=== PATIENT | male | born 1960 | race Caucasian/White ===

== ENCOUNTER 2018-06-09 15:35 | Outpatient (CLI) | payer SELFPAY | END 2018-06-09 15:36 | disposition EMS.NT | LOC: EMS 15:35 | PROVIDERS: ATTEND Surgery | DX: Z04.1 Encounter for examination and observation following transport accident (principal) ==

== ENCOUNTER 2019-05-01 15:41 | Outpatient (CLI) | payer OTHER ==
--- NOTE | 2019-05-03 07:21 | XRAY Report ---
Reason: ARTHRITIS, PAIN IN RIGHT SHOULDER Procedure Date: 05/01/2019 Accession Number: [id number] / [id number] Procedure: XRN - Shoulder 3 View RT CPT Code: FULL RESULT: EXAM: RIGHT SHOULDER RADIOGRAPHY EXAM DATE: 05/01/2019 04:01 PM. CLINICAL HISTORY: ARTHRITIS, PAIN IN RIGHT SHOULDER. COMPARISON: None. TECHNIQUE: 3 views. FINDINGS: Bones: No acute fracture. Irregularity of the right humerus head may be posttraumatic or degenerative. Joints: Mild acromioclavicular joint narrowing, osteophytosis, and subchondral sclerosis. Marked glenohumeral joint narrowing, osteophytosis, and subchondral sclerosis. Normal alignment of the shoulder joint. Soft tissues: The visualized hemithorax is unremarkable. Large loose bodies are present in the right shoulder joint. IMPRESSION: 1. No fracture. 2. Marked right glenohumeral and mild right acromioclavicular joint arthritis. Large loose bodies noted in the right shoulder joint. RADIA
== END 2019-05-01 15:42 | disposition home or self-care (01) ==
LOC: DI.N 15:41
PROVIDERS: ATTEND Family Medicine
DX: M19.011 Primary osteoarthritis, right shoulder (principal); M24.011 Loose body in right shoulder

== ENCOUNTER 2023-05-08 07:43 | Emergency (ER) | payer MEDICAID, OTHER ==
[2023-05-08 08:15] LABS: BASOPHILS # (AUTO) 0.1 10^3/uL (0.0-0.1); BASOPHILS % (AUTO) 1.4 %; EOSINOPHILS # (AUTO) 0.2 10^3/uL (0.0-0.7); EOSINOPHILS % (AUTO) 2.8 %; HCT - HEMATOCRIT 40.7 % (42.0-52.0); HGB - HEMOGLOBIN 14.2 g/dL (14.0-18.0); LYMPHOCYTES # (AUTO) 1.3 10^3/uL (1.5-3.5); LYMPHOCYTES % (AUTO) 16.8 %; MEAN CORPUSCULAR HEMOGLOBIN 40.3 pg (27.0-31.0); MEAN CORPUSCULAR HGB CONC 34.9 g/dL (32.0-36.0); MEAN CORPUSCULAR VOLUME 115.6 fL (80.0-94.0); MONOCYTES # (AUTO) 0.8 10^3/uL (0.0-1.0); MONOCYTES % (AUTO) 9.6 %; NEUTROPHILS # (AUTO) 5.5 10^3/uL (1.5-6.6); NEUTROPHILS % (AUTO) 68.5 %; PLT - PLATELET COUNT 155 10^3/uL (130-450); RED BLOOD COUNT 3.52 10^6/uL (4.70-6.10); RED CELL DISTRIBUTION WIDTH 13.2 % (12.0-15.0)
[2023-05-08 08:28] LABS: ALBUMIN/GLOBULIN RATIO 0.7 (1.0-2.2); BILIRUBIN,TOTAL 5.1 mg/dL (0.2-1.0); CREATININE 0.6 mg/dL (0.6-1.3); TOTAL PROTEIN 7.5 g/dL (6.4-8.9)
[2023-05-08 09:03] LABS: GLUCOSE, URINE (UA) NEGATIVE (NEGATIVE); KETONES,URINE (UA) NEGATIVE (NEGATIVE); LEUKOCYTE ESTERASE, URINE NEGATIVE (NEGATIVE); NITRITE,URINE NEGATIVE (NEGATIVE); OCCULT BLOOD,URINE NEGATIVE (NEGATIVE); PROTEIN,URINE NEGATIVE (NEGATIVE); UROBILINOGEN,URINE 0.2 (NORMAL) E.U./dL (NORMAL)
[2023-05-08 09:09] LABS: BILIRUBIN,URINE NEGATIVE (NEGATIVE); CLARITY,URINE CLEAR (CLEAR); ICTOTEST,URINE NEGATIVE
--- NOTE | 2023-05-08 11:24 | ED Physician Documentation ---
PD HPI MALE - Stated complaint Stated Complaint: - Chief complaint Chief Complaint: Abd Pain - History obtained from History obtained from: Patient - Additional information Additional information: The pt comes to the ED with CC of R groin pain and swelling x 1 week. He was doing some heavier moving/lifting, and he is concerned that he has developed a hernia. No h/o inguinal hernia. No redness or fevers. No pain/burning with urination. No back pain or blood in urine. PD PAST MEDICAL HISTORY - Past Medical History Past Medical History: No - Past Surgical History Past Surgical History: No - Present Medications Home Medications: Ambulatory Orders Medication Instructions Recorded Confirmed Docusate Sodium 250Mg Capsule 250 mg PO DAILY #10 cap 05/08/23 [Colace 250Mg Capsule] HYDROcod/ACETAM 5/325 [Iola 5/325] 1 - 2 tablet PO Q6H PRN #14 tablet 05/08/23 - Allergies Allergies/Adverse Reactions: Allergies Allergy/AdvReac Type Severity Reaction Status Date / Time No Known Drug Allergies Allergy Verified 05/08/23 07:55 - Social History Does the pt smoke?: No Smoking Status: Never smoker PD ED PE NORMAL - Vitals Vital signs reviewed: Yes - General General: Alert and oriented X 3, No acute distress - HEENT HEENT: Atraumatic, PERRL, EOMI, Moist mucous membranes - Neck Neck: Supple, no meningeal sign - Cardiac Cardiac: RRR, No murmur, Strong equal pulses - Respiratory Respiratory: No respiratory distress, Clear bilaterally - Abdomen Abdomen: Soft, Non tender, Non distended - Male Male : Other (TTP R inguinal area. Mild ST mass over same area, reducible. Mild tenderness R testicle without abnormal lie or enlargement. No scrotal skin changes. Penis normal.) - Derm Derm: Warm and dry - Extremities Extremities: No deformity - Neuro Neuro: Alert and oriented X 3 - Psych Psych: Normal mood, Normal affect Results - Labs Labs: Laboratory Tests 05/08/23 05/08/23 05/08/23 08:12 08:12 08:55 WBC 8.0 RBC 3.52 L Hgb 14.2 Hct 40.7 L MCV 115.6 H MCH 40.3 H MCHC 34.9 RDW 13.2 Plt Count 155 MPV 10.0 Neut # (Auto) 5.5 Lymph # (Auto) 1.3 L Will # (Auto) 0.8 Eos # (Auto) 0.2 Baso # (Auto) 0.1 Absolute Nucleated RBC 0.00 Nucleated RBC % 0.0 Sodium 135 Potassium 4.0 Chloride 99 L Carbon Dioxide 29 Anion Gap 7.0 BUN 7 Creatinine 0.6 Estimated GFR (MDRD) 137 Glucose 139 H Calcium 9.0 Total Bilirubin 5.1 H AST 154 H ALT 71 H Alkaline Phosphatase 182 H Total Protein 7.5 Albumin 3.0 L Globulin 4.5 H Albumin/Globulin Ratio 0.7 L Lipase 79 Urine Color YELLOW Urine Clarity CLEAR Urine pH 6.0 Ur Specific [place] >=1.030 H Urine Protein NEGATIVE Urine Glucose (UA) NEGATIVE Urine Ketones NEGATIVE Urine Occult Blood NEGATIVE Urine Nitrite NEGATIVE Urine Bilirubin NEGATIVE Urine Urobilinogen 0.2 (NORMAL) Ur Leukocyte Esterase NEGATIVE Ur Microscopic Review NOT INDICATED Urine Culture Comments NOT INDICATED - Rads (name of study) Testicular/scrotal US Relevant Findings:: Final report received, See rad report PD Medical Decision Making - ED course Complexity details: reviewed results, re-evaluated patient, considered differential, d/w patient ED course: The pt was worked up with US of R testicle/scrotum, and preliminary report found a fat-containing inguinal hernia with no evidence of epididymitis or torsion. Final report added R hydrocele. Exam does not indicate incarceration. I d/w pt the need to avoid straining, and to follow up with surgery if he would like to discuss options for management/repair. I have prescribed pain management and a stool softener. We have discussed the usual indications for return. Departure - Departure Disposition: 01 Home, Self Care Clinical Impression: Hernia Condition: Stable Instructions: ED Hernia Inguinal Follow-Up: Moses De La Rosa MD [Provider Admit Priv/Credential] - Rishabh Laboy MD [Provider Admit Priv/Credential] - Fannie Hobson MD [Provider Admit Priv/Credential] - Prescriptions: Docusate Sodium 250Mg Capsule [Colace 250Mg Capsule] 250 mg PO DAILY #10 cap HYDROcod/ACETAM 5/325 [Iola 5/325] 1 - 2 tablet PO Q6H PRN #14 tablet PRN Reason: Pain Comments: Your ultrasound today showed a fat-containing hernia in your groin region, that is penetrating down into your scrotum. There is no evidence of any problem with your testicle itself. Additionally, there is no evidence of infection of your scrotum. Please follow-up with surgery to discuss further intervention for your hernia if desired. Some pain medication has been prescribed, but it is very important that you take the stool softener along with the pain meds to avoid developing constipation and placing further strain on the herniated area. The prescription for both Has been electronically transmitted to the [facility] pharmacy in [place]. Forms: PCP List Discharge Date/Time: 05/08/23 11:35
--- NOTE | 2023-05-08 11:33 | Ultrasound Report ---
PROCEDURE: Testicle w/Doppler INDICATIONS: Right testicular pain/swelling TECHNIQUE: Real-time scanning was performed of the scrotum and testicles, with image documentation. Color and p ulse Doppler interrogation was performed of both testicles. COMPARISON: None. FINDINGS: Right: Testicle is normal in size at 4.6 x 3.0 x 2.7 cm, and homogenous in echotexture. Epididymis is suboptimally visualized. The epididymal body and tail is not well seen. Moderate hydrocele with in ternal echo consistent with debris. No varicoceles. Overlying scrotal skin is normal in thickness. Left: Testicle is normal in size at 3.9 x 3.1 x 2.7 cm, and homogeneous in echotexture. Epididymis is normal in overall size and morphology. Small hydrocele. No varicoceles. Overlying scrotal skin i s normal in thickness. Doppler: Color and pulse Doppler demonstrate normal and symmetric arterial flow in both testicles. There is a fat-containing right inguinal hernia with the hernia neck measuring 1 cm. IMPRESSION: 1. Normal testicles bilaterally. No testicular mass or findings to suggest testicular torsion. 2. Right epididymis is suboptimally visualized. Left epididymis is normal. No findings to suggest epi didymitis. 3. There is a moderate right hydrocele with debris. A differential diagnosis is hematocele or pyocele . 4. Small left hydrocele. 5. A fat-containing right inguinal hernia. Reviewed by: Owen Pillai MD on 05/08/2023 11:31 AM PDT Approved by: Owen Pillai MD on 05/08/2023 11:31 AM PDT Station ID: [id number]
[2023-05-08 11:41] VITALS: BP 155/113; O2SAT 95
== END 2023-05-08 11:35 | disposition home or self-care (01) ==
LOC: ED 07:43
DX: K40.90 Unilateral inguinal hernia, without obstruction or gangrene, not specified as recurrent (principal)
CPT/HCPCS: 36415; 80053; 81001; 81003; 83690; 85025; 87086; 93975; 99283; 99284

== ENCOUNTER 2023-06-12 10:33 | Outpatient (CLI) | payer MEDICAID ==
[2023-06-12 15:39] LABS: ALBUMIN 2.5 g/dL (3.2-5.5); ALBUMIN/GLOBULIN RATIO 0.5 (1.0-2.2); BILIRUBIN,TOTAL 7.6 mg/dL (0.2-1.0); CALCIUM 8.9 mg/dL (8.5-10.3); CREATININE 0.9 mg/dL (0.6-1.3); POTASSIUM 4.4 mmol/L (3.5-4.5); TOTAL PROTEIN 7.7 g/dL (6.4-8.9)
[2023-06-12 15:42] LABS: PT - PROTHROMBIN TIME 20.9 secs (9.9-12.6)
== END 2023-06-12 10:34 | disposition home or self-care (01) ==
LOC: LAB.S 10:33
PROVIDERS: ATTEND Physician Assistant Medical
DX: K70.31 Alcoholic cirrhosis of liver with ascites (principal)
CPT/HCPCS: 36415; 80053; 85610

== ENCOUNTER 2023-06-19 08:51 | Outpatient (CLI) | payer MEDICAID ==
[2023-06-19 09:23] LABS: BASOPHILS # (AUTO) 0.1 10^3/uL (0.0-0.1); BASOPHILS % (AUTO) 0.8 %; EOSINOPHILS # (AUTO) 0.1 10^3/uL (0.0-0.7); EOSINOPHILS % (AUTO) 0.8 %; HCT - HEMATOCRIT 40.2 % (42.0-52.0); HGB - HEMOGLOBIN 13.8 g/dL (14.0-18.0); LYMPHOCYTES # (AUTO) 1.1 10^3/uL (1.5-3.5); LYMPHOCYTES % (AUTO) 11.4 %; MEAN CORPUSCULAR HEMOGLOBIN 39.5 pg (27.0-31.0); MEAN CORPUSCULAR HGB CONC 34.3 g/dL (32.0-36.0); MEAN CORPUSCULAR VOLUME 115.2 fL (80.0-94.0); MEAN PLATELET VOLUME 9.5 fL (7.4-11.4); MONOCYTES # (AUTO) 0.8 10^3/uL (0.0-1.0); MONOCYTES % (AUTO) 9.1 %; NEUTROPHILS # (AUTO) 7.2 10^3/uL (1.5-6.6); NEUTROPHILS % (AUTO) 77.5 %; PLT - PLATELET COUNT 197 10^3/uL (130-450); RED BLOOD COUNT 3.49 10^6/uL (4.70-6.10); RED CELL DISTRIBUTION WIDTH 12.8 % (12.0-15.0); WHITE BLOOD COUNT 9.3 x10^3/uL (4.8-10.8)
[2023-06-19 09:27] LABS: SLIDE REVIEW? Indicated
[2023-06-19 09:42] LABS: INR 2.1 (0.8-1.2); PT - PROTHROMBIN TIME 22.1 secs (9.9-12.6)
[2023-06-19 09:44] LABS: ALBUMIN 2.6 g/dL (3.2-5.5); ALBUMIN/GLOBULIN RATIO 0.5 (1.0-2.2); BILIRUBIN,TOTAL 5.5 mg/dL (0.2-1.0); CALCIUM 8.6 mg/dL (8.5-10.3); CREATININE 0.9 mg/dL (0.6-1.3); MAGNESIUM 1.6 mg/dL (1.7-2.3); POTASSIUM 4.2 mmol/L (3.5-4.5); TOTAL PROTEIN 7.5 g/dL (6.4-8.9)
[2023-06-19 10:02] LABS: PLATELET ESTIMATE, MANUAL NORMAL (130-450,000) (NORMAL); PLATELET MORPHOLOGY NORMAL APPEARANCE (NORMAL)
[2023-06-19 10:03] LABS: RBC MORPHOLOGY (MULTIPLE) 1+ MACROCYTOSIS (NORMAL); WBC MORPHOLOGY (MULTIPLE) 2+ SMUDGE CELLS (NORMAL)
--- NOTE | 2023-06-19 15:54 | Ultrasound Report ---
PROCEDURE: Abdominal Paracentesis INDICATIONS: ASCITES TECHNIQUE: The indications, alternatives, benefits, risks, and complications of the procedure were explained to the patient. Written informed consent was obtained and placed in the chart. The abdomen and pelvis were examined sonographically, and an appropriate site was chosen for paracentesis. The skin was pre pared and draped in the usual sterile fashion, and 1% lidocaine was infiltrated from the skin down th rough the peritoneal surface. A 19-gauge catheter-covered needle was then introduced into the perito bruno space, the catheter was advanced and the needle was withdrawn, and thereafter peritoneal fluid w as withdrawn. The catheter was then removed and a dressing was applied. The fluid was discarded if the clinician did not order diagnostic testing of the fluid. COMPARISON: None FINDINGS: Access site: Right lower quadrant Needle: One-Step centesis catheter with introducer needle. Fluid volume and description: 5 L yellow Fluid sent for diagnostic testing: Yes Medications: 1% lidocaine for local anaesthesia. Complications: None. IMPRESSION: Successful ultrasound-guided paracentesis. Reviewed by: Addie Yoon MD on 06/19/2023 3:53 PM PST Approved by: Addie Yoon MD on 06/19/2023 3:53 PM PST Station ID: [id number]
== END 2023-06-19 08:52 | disposition home or self-care (01) ==
LOC: DI 08:51
PROVIDERS: ATTEND Physician Assistant Medical
DX: K70.31 Alcoholic cirrhosis of liver with ascites (principal)
CPT/HCPCS: 36415; 49083; 80053; 83735; 85025; 85610

== ENCOUNTER 2023-06-25 08:56 | Outpatient (CLI) | payer MEDICAID ==
[2023-06-25] MEDS ORDERED: iohexoL-300 100 ML VIAL IVP ONE (10:09)
--- NOTE | 2023-06-25 13:32 | CT Report ---
PROCEDURE: ABDOMEN W/WO INDICATIONS: KIDNEY CA CONTRAST: 140ml omni 300 TECHNIQUE: 3 phase scanning was performed. After the administration of intravenous contrast, 5 mm thick section s acquired from the diaphragm to the symphysis. 5 mm coronal and sagittal reformats were acquired. For radiation dose reduction, the following was used: automated exposure control, adjustment of mA a nd/or kV according to patient size. COMPARISON: None. FINDINGS: Image quality: Excellent. Liver: Cirrhotic changes of the liver including nodular contours and increased density. Femoral vein is patent. No liver lesions identified. OTHER: Lung bases and heart: Small left effusion. Gallbladder and biliary tree: Cholelithiasis without wall thickening. No biliary dilation. Spleen: No splenomegaly. Pancreas: No pancreatic ductal dilation. Adrenals: No adrenal nodule. Kidneys and ureters: Continued for pole of the left kidney there is a soft tissue density mass measur ing 5.8 x 4.3 x 3.4 cm with a mildly heterogeneous appearance with questionable low-level enhancement . Bowel and peritoneum: No bowel distention. Moderate ascites Lymph nodes: No central or retroperitoneal adenopathy. Vessels: No infrarenal aortic aneurysm. Bones: No aggressive osseous abnormality. Severe spondylitic changes at L2-L3 with grade 2 retrolisth esis. Other: No significant ventral hernia. IMPRESSION: 1.Exophytic mass of the lower pole of the left kidney measuring 5.8 cm with questionable enhancement likely reflects a solid mass concerning for malignancy however hyperdense cyst is not excluded. Consi des ultrasound versus MRI to distinguish solid from hyperdense cystic lesion. 2.Sequela of cirrhosis without mass identified. 3.Cholelithiasis without evidence of acute cholecystitis. Reviewed by: Jerad Wells MD on 06/25/2023 12:31 PM [place] Approved by: Jerad Wells MD on 06/25/2023 12:31 PM [facility] Station ID: [id number]
== END 2023-06-25 08:57 | disposition home or self-care (01) ==
LOC: DI 08:56
PROVIDERS: ATTEND Urology
DX: D41.02 Neoplasm of uncertain behavior of left kidney (principal); K80.20 Calculus of gallbladder without cholecystitis without obstruction
CPT/HCPCS: 74170; Q9967

== ENCOUNTER 2023-07-05 10:20 | Outpatient (CLI) | payer MEDICAID ==
--- NOTE | 2023-07-11 18:15 | Ultrasound Report ---
PROCEDURE: Abdominal Paracentesis INDICATIONS: ASCITES TECHNIQUE: The indications, alternatives, benefits, risks, and complications of the procedure were explained to the patient. Written informed consent was obtained and placed in the chart. The abdomen and pelvis were examined sonographically, and an appropriate site was chosen for paracentesis. The skin was pre pared and draped in the usual sterile fashion, and 1% lidocaine was infiltrated from the skin down th rough the peritoneal surface. A 19-gauge catheter-covered needle was then introduced into the perito bruno space, the catheter was advanced and the needle was withdrawn, and thereafter peritoneal fluid w as withdrawn. The catheter was then removed and a dressing was applied. The fluid was discarded if the clinician did not order diagnostic testing of the fluid. COMPARISON: 06/19/2013 FINDINGS: Access site: Right lower quadrant Needle: One-Step centesis catheter with introducer needle. Fluid volume and description: 5 L ascites Fluid sent for diagnostic testing: No Medications: 1% lidocaine for local anaesthesia. Complications: None. IMPRESSION: 1. Successful ultrasound-guided paracentesis. Reviewed by: Carissa Metz MD on 07/11/2023 6:14 PM PST Approved by: Carissa Metz MD on 07/11/2023 6:14 PM PST Station ID: [id number]
== END 2023-07-05 10:21 | disposition home or self-care (01) ==
LOC: DI 10:20
PROVIDERS: ATTEND Physician Assistant Medical
DX: K70.31 Alcoholic cirrhosis of liver with ascites (principal)
CPT/HCPCS: 49083

== ENCOUNTER 2023-07-10 07:36 | Outpatient (CLI) | payer MEDICAID ==
--- NOTE | 2023-07-10 15:20 | Ultrasound Report ---
PROCEDURE: Retroperitoneal INDICATIONS: KIDNEY CANCER TECHNIQUE: Real-time scanning was performed of the retroperitoneal organs, with image documentation. COMPARISON: CT abdomen on June 25, 2023. FINDINGS: Kidneys: Kidneys are normal in size. Right kidney measures 10.9 cm long; left kidney measures 12.6 cm long. Right renal cortical thickness is 1 cm; left renal cortical thickness is 1 cm. Multiple lesions in the left kidney. For example: -Left interpolar questionable hypoechoic solid mass measuring 3.2 x 2.5 x 2.3 cm. -Anechoic cyst in the lower pole measuring 3.9 x 4.2 x 4.5 cm with adjacent hypoechoic lesion measuri ng 3 x 3.9 x 3.4 cm. -Anechoic simple cyst in the upper pole measuring 2.2 x 2.1 x 2.3 cm. Right kidney demonstrates no solid or cystic masses. Bladder: Nondistended, limiting evaluation. On pre-void images, bilateral ureteral jets are noted wit h color Doppler interrogation. (Of note, ureteral jets may not be detectable in up to 25% of cases d ue to insufficient differences in specific gravity between ureteral and bladder urine). Miscellaneous: No free abdominal fluid. IMPRESSION: 1. Multiple lesions in the left kidney with two questionable solid masses in the interpolar region me asuring 3.2 x 2.5 x 2.3 cm and lower pole adjacent to a simple cyst measuring 3 x 3.9 x 3.4 cm. - Recommend an MRI (renal mass protocol) for further evaluation which is preferred. Alternatively, a CT (renal mass protocol) can be performed. 2. Right-sided renal masses. 3. No hydronephrosis bilaterally. Reviewed by: Madelaine Mann MD on 07/10/2023 3:19 PM PST Approved by: Madelaine Mann MD on 07/10/2023 3:19 PM PST Station ID: [id number]
== END 2023-07-10 07:37 | disposition home or self-care (01) ==
LOC: DI 07:36
PROVIDERS: ATTEND Urology
DX: D41.02 Neoplasm of uncertain behavior of left kidney (principal); N28.89 Other specified disorders of kidney and ureter

== ENCOUNTER 2023-07-12 11:01 | Outpatient (CLI) | payer MEDICAID ==
[2023-07-12 11:16] LABS: BASOPHILS # (AUTO) 0.1 10^3/uL (0.0-0.1); EOSINOPHILS # (AUTO) 0.1 10^3/uL (0.0-0.7); HCT - HEMATOCRIT 45.7 % (42.0-52.0); HGB - HEMOGLOBIN 15.8 g/dL (14.0-18.0); LYMPHOCYTES # (AUTO) 1.2 10^3/uL (1.5-3.5); LYMPHOCYTES % (AUTO) 16.5 %; MEAN CORPUSCULAR HEMOGLOBIN 37.9 pg (27.0-31.0); MEAN CORPUSCULAR HGB CONC 34.6 g/dL (32.0-36.0); MEAN CORPUSCULAR VOLUME 109.6 fL (80.0-94.0); MEAN PLATELET VOLUME 9.5 fL (7.4-11.4); MONOCYTES # (AUTO) 0.6 10^3/uL (0.0-1.0); MONOCYTES % (AUTO) 8.6 %; NEUTROPHILS # (AUTO) 5.3 10^3/uL (1.5-6.6); NEUTROPHILS % (AUTO) 72.6 %; PLT - PLATELET COUNT 196 10^3/uL (130-450); RED BLOOD COUNT 4.17 10^6/uL (4.70-6.10); RED CELL DISTRIBUTION WIDTH 12.2 % (12.0-15.0); WHITE BLOOD COUNT 7.3 x10^3/uL (4.8-10.8)
[2023-07-12 11:28] LABS: PT - PROTHROMBIN TIME 21.2 secs (9.9-12.6)
[2023-07-12 11:31] LABS: ALBUMIN/GLOBULIN RATIO 0.5 (1.0-2.2); BILIRUBIN,TOTAL 5.3 mg/dL (0.2-1.0); CALCIUM 9.6 mg/dL (8.5-10.3); POTASSIUM 4.2 mmol/L (3.5-4.5)
== END 2023-07-12 11:02 | disposition home or self-care (01) ==
LOC: LAB 11:01
PROVIDERS: ATTEND Physician Assistant Medical
DX: K70.31 Alcoholic cirrhosis of liver with ascites (principal)
CPT/HCPCS: 36415; 80053; 85025; 85610

== ENCOUNTER 2023-07-18 07:51 | Outpatient (CLI) | payer MEDICAID ==
--- NOTE | 2023-07-18 13:17 | Ultrasound Report ---
PROCEDURE: Abdominal Paracentesis INDICATIONS: ASCITES TECHNIQUE: The indications, alternatives, benefits, risks, and complications of the procedure were explained to the patient. Written informed consent was obtained and placed in the chart. The abdomen and pelvis were examined sonographically, and an appropriate site was chosen for paracentesis. The skin was pre pared and draped in the usual sterile fashion, and 1% lidocaine was infiltrated from the skin down th rough the peritoneal surface. A 19-gauge catheter-covered needle was then introduced into the perito bruno space, the catheter was advanced and the needle was withdrawn, and thereafter peritoneal fluid w as withdrawn. The catheter was then removed and a dressing was applied. The fluid was discarded if the clinician did not order diagnostic testing of the fluid. COMPARISON: 07/05/2023 FINDINGS: Access site: Right lower quadrant Needle: One-Step centesis catheter with introducer needle. Fluid volume and description: Clear yellow 4 L Fluid sent for diagnostic testing: No Medications: 1% lidocaine for local anaesthesia. Complications: None. IMPRESSION: Successful ultrasound-guided paracentesis. Reviewed by: Shilo Vaughan MD on 07/18/2023 1:15 PM PST Approved by: Shilo Vaughan MD on 07/18/2023 1:15 PM PST Station ID: [id number]
== END 2023-07-18 07:52 | disposition home or self-care (01) ==
LOC: DI 07:51
PROVIDERS: ATTEND Physician Assistant Medical
DX: K70.31 Alcoholic cirrhosis of liver with ascites (principal)
CPT/HCPCS: 49083

== ENCOUNTER 2023-07-27 08:48 | Outpatient (CLI) | payer MEDICAID ==
--- NOTE | 2023-07-27 11:39 | Ultrasound Report ---
PROCEDURE: Abdomen Limited INDICATIONS: Evaluate for ASCITES TECHNIQUE: Real-time focused scanning was performed of the abdomen, with image documentation. COMPARISONS: None. FINDINGS: There is mild ascites in the right side of the abdomen. It is felt to be too little to perform parace ntesis. The liver is incidentally imaged, and is noted to be a nodular on its surface and is small and shrunk en, consistent with cirrhosis. IMPRESSION: 1. Insufficient ascites for paracentesis. 2. Cirrhosis. Reviewed by: Lester Hale MD on 07/27/2023 11:37 AM PST Approved by: Lester Hale MD on 07/27/2023 11:37 AM PST Station ID: [id number]
== END 2023-07-27 08:49 | disposition home or self-care (01) ==
LOC: DI 08:48
PROVIDERS: ATTEND Physician Assistant Medical
DX: K70.31 Alcoholic cirrhosis of liver with ascites (principal)

== ENCOUNTER 2023-07-29 09:29 | Outpatient (CLI) | payer MEDICAID ==
[~2023-07-29 09:29] MED LIST: GADOTERATE MEGLUMINE 5 MMOL/10 ML VIAL ONE
[2023-07-29] MEDS ORDERED: GADOTERATE MEGLUMINE 5 MMOL/10 ML VIAL IVP ONE (11:03)
--- NOTE | 2023-08-01 10:15 | MRI Report ---
PROCEDURE: ABDOMEN W/WO INDICATIONS: KIDNEY NEOPLASM CONTRAST: CLARISCAN 20.4 ML TECHNIQUE: Coronal ultra fast SE, axial 2D spoiled GE in- and [id number]; axial breath-hold T2 fast SE. Dynam ic axial ultra fast GE during the administration of contrast; post-contrast coronal ultra fast GE or 2D spoiled GE with fat saturation from the hepatic dome to the iliac crests. Optional diffusion weig hted imaging and ADC may be performed. COMPARISON: 06/25/2023 CT FINDINGS: Image quality: Diagnostic, but mild motion artifact is present. Lower chest: There is a small right pleural effusion partially seen. Underlying lung opacities are pr obably present as well. There may be a trace left pleural effusion. Liver: Cirrhotic contour. No suspicious hypervascular liver lesion. Gallbladder and biliary system: Cholelithiasis. Nonspecific pericholecystic fat stranding. No signifi cant distention. Overall biliary system appears nondilated Pancreas: Unremarkable. No pathologic ductal dilation Spleen: Borderline enlarged at 14 cm Adrenals: No discrete nodule. Mild bilateral thickening Kidneys: There are cysts bilaterally. The left lower pole lesion in question represents a cyst with m ultiple thin septations without nodular enhancement on post gadolinium images. Vessels and lymph nodes: Portal venous varices. Upper abdominal mildly enlarged lymph nodes, probably reactive in the setting of chronic liver disease Bowel and peritoneum: Mild ascites, likely with internal debris. No bowel obstruction. Body wall: Small fat-containing umbilical hernia Bones: There are degenerative changes. Suspected vertebral body endplate deformities, better assessed on prior CT, and likely nonacute IMPRESSION: The left lower pole renal lesion represents a complex cyst with numerous thin septations. No nodular enhancement. Cirrhosis and sequelae of portal hypertension. Small ascites. In the setting of cirrhosis, consider continued HCC screening. The left lower pole renal complex cyst can be followed simultaneously. Other findings as above. Reviewed by: Shilo Vaughan MD on 08/01/2023 10:14 AM PST Approved by: Shilo Vaughan MD on 08/01/2023 10:14 AM PST Station ID: [id number]
== END 2023-07-29 09:30 | disposition home or self-care (01) ==
LOC: DI 09:29
PROVIDERS: ATTEND Urology
DX: N28.1 Cyst of kidney, acquired (principal); K74.60 Unspecified cirrhosis of liver; R18.8 Other ascites
CPT/HCPCS: 74183; A9575

== ENCOUNTER 2023-08-11 10:49 | Outpatient (CLI) | payer MEDICAID ==
[2023-08-11 11:06] LABS: BASOPHILS # (AUTO) 0.1 10^3/uL (0.0-0.1); EOSINOPHILS # (AUTO) 0.8 10^3/uL (0.0-0.7); EOSINOPHILS % (AUTO) 8.5 %; HCT - HEMATOCRIT 42.7 % (42.0-52.0); HGB - HEMOGLOBIN 15.1 g/dL (14.0-18.0); LYMPHOCYTES # (AUTO) 1.6 10^3/uL (1.5-3.5); LYMPHOCYTES % (AUTO) 17.1 %; MEAN CORPUSCULAR HEMOGLOBIN 38.3 pg (27.0-31.0); MEAN CORPUSCULAR HGB CONC 35.4 g/dL (32.0-36.0); MEAN CORPUSCULAR VOLUME 108.4 fL (80.0-94.0); MEAN PLATELET VOLUME 9.6 fL (7.4-11.4); MONOCYTES # (AUTO) 0.9 10^3/uL (0.0-1.0); MONOCYTES % (AUTO) 9.7 %; NEUTROPHILS # (AUTO) 5.7 10^3/uL (1.5-6.6); NEUTROPHILS % (AUTO) 62.8 %; PLT - PLATELET COUNT 147 10^3/uL (130-450); RED BLOOD COUNT 3.94 10^6/uL (4.70-6.10); RED CELL DISTRIBUTION WIDTH 13.8 % (12.0-15.0); WHITE BLOOD COUNT 9.1 x10^3/uL (4.8-10.8)
[2023-08-11 11:10] LABS: INR 1.7 (0.8-1.2); PT - PROTHROMBIN TIME 17.9 secs (9.9-12.6)
[2023-08-11 11:36] LABS: ALBUMIN 3.3 g/dL (3.2-5.5); ALBUMIN/GLOBULIN RATIO 0.6 (1.0-2.2); ALKALINE PHOSPHATASE 110 IU/L (42-121); ALT ALANINE AMINOTRANSFERASE 38 IU/L (10-60); AST ASPARTATE AMINOTRANSFERASE 43 IU/L (10-42); BILIRUBIN,TOTAL 3.9 mg/dL (0.2-1.0); BUN - BLOOD UREA NITROGEN 17 mg/dL (6-20); CALCIUM 9.4 mg/dL (8.5-10.3); CARBON DIOXIDE - CO2 30 mmol/L (21-32); CHLORIDE 95 mmol/L (101-111); CHOL/HDL RATIO 2.8 (<5.0); CHOLESTEROL 115 mg/dL; CREATININE 0.9 mg/dL (0.6-1.3); GFR - MDRD 86 (>89); GLUCOSE 133 mg/dL (74-104); HDL CHOLESTEROL 41 mg/dL; LDL CHOLESTEROL,CALCULATED 62 mg/dL; LDL/HDL RATIO 1.5 (<3.6); POTASSIUM 4.2 mmol/L (3.5-4.5); SODIUM 130 mmol/L (135-145); TOTAL PROTEIN 8.5 g/dL (6.4-8.9); TRIGLYCERIDES 62 mg/dL (48-352); VLDL CHOLESTEROL 12 mg/dL
[2023-08-11 11:50] LABS: ESTIMATED AVERAGE GLUCOSE 82 mg/dL (70-100); HEMOGLOBIN A1c% 4.5 % (4.27-6.07)
[2023-08-11 12:33] LABS: THYROID STIMULATING HORMONE 1.98 uIU/mL (0.34-5.60)
== END 2023-08-11 10:50 | disposition home or self-care (01) ==
LOC: LAB 10:49
PROVIDERS: ATTEND Physician Assistant Medical
DX: K70.31 Alcoholic cirrhosis of liver with ascites (principal); Z13.9 Encounter for screening, unspecified; R73.9 Hyperglycemia, unspecified; F41.9 Anxiety disorder, unspecified; F32.A Depression, unspecified
CPT/HCPCS: 36415; 80050; 80061; 83036; 83721; 85610

== ENCOUNTER 2023-08-14 08:13 | Outpatient (CLI) | payer MEDICAID ==
--- NOTE | 2023-08-14 14:27 | Ultrasound Report ---
PROCEDURE: Abdomen Limited INDICATIONS: ASCITES TECHNIQUE: Real-time focused scanning was performed of the abdomen, with image documentation. COMPARISONS: MRI 07/26/2023 FINDINGS: No significant ascites is seen in the abdomen and pelvis. Paracentesis was not performed. IMPRESSION: No significant ascites. Reviewed by: Timi Robles MD on 08/14/2023 2:26 PM PST Approved by: Timi Robles MD on 08/14/2023 2:26 PM PST Station ID: [id number]
== END 2023-08-14 08:14 | disposition home or self-care (01) ==
LOC: DI 08:13
PROVIDERS: ATTEND Physician Assistant Medical
DX: K70.31 Alcoholic cirrhosis of liver with ascites (principal)

== ENCOUNTER 2023-08-21 11:11 | Outpatient (CLI) | payer MEDICAID | END 2023-08-21 11:12 | disposition home or self-care (01) | LOC: RT 11:11 | PROVIDERS: ATTEND Surgery | DX: I48.20 Chronic atrial fibrillation, unspecified (principal) | CPT/HCPCS: 93005 ==

== ENCOUNTER 2023-09-04 13:52 | Outpatient (CLI) | payer MEDICAID ==
[2023-09-04 14:42] LABS: BASOPHILS # (AUTO) 0.1 10^3/uL (0.0-0.1); BASOPHILS % (AUTO) 1.2 %; EOSINOPHILS # (AUTO) 0.5 10^3/uL (0.0-0.7); EOSINOPHILS % (AUTO) 5.6 %; HCT - HEMATOCRIT 41.2 % (42.0-52.0); HGB - HEMOGLOBIN 14.1 g/dL (14.0-18.0); LYMPHOCYTES # (AUTO) 1.2 10^3/uL (1.5-3.5); MEAN CORPUSCULAR HEMOGLOBIN 37.6 pg (27.0-31.0); MEAN CORPUSCULAR HGB CONC 34.2 g/dL (32.0-36.0); MEAN CORPUSCULAR VOLUME 109.9 fL (80.0-94.0); MEAN PLATELET VOLUME 9.9 fL (7.4-11.4); MONOCYTES # (AUTO) 0.6 10^3/uL (0.0-1.0); MONOCYTES % (AUTO) 7.2 %; NEUTROPHILS # (AUTO) 6.2 10^3/uL (1.5-6.6); NEUTROPHILS % (AUTO) 71.1 %; PLT - PLATELET COUNT 146 10^3/uL (130-450); RED BLOOD COUNT 3.75 10^6/uL (4.70-6.10); RED CELL DISTRIBUTION WIDTH 13.5 % (12.0-15.0); WHITE BLOOD COUNT 8.6 x10^3/uL (4.8-10.8)
[2023-09-04 14:49] LABS: INR 1.7 (0.8-1.2); PT - PROTHROMBIN TIME 17.9 secs (9.9-12.6)
[2023-09-04 14:56] LABS: ALBUMIN 3.3 g/dL (3.2-5.5); ALBUMIN/GLOBULIN RATIO 0.7 (1.0-2.2); BILIRUBIN,TOTAL 3.9 mg/dL (0.2-1.0); CALCIUM 9.4 mg/dL (8.5-10.3); POTASSIUM 4.4 mmol/L (3.5-4.5)
[2023-09-05 02:08] LABS: HCV AB Non Reactive (Non Reactive)
[2023-09-05 04:09] LABS: HBsAG SCREEN Negative (Negative); HEPATITIS B SURFACE AB QUANT <3.1 mIU/mL (Immunity>9.9)
[2023-09-05 16:10] LABS: AFP SERUM TUMOR MARKER 6.3 ng/mL (0.0-8.4)
[2023-09-06 19:08] LABS: HCV RNA QUANTITATION HCV Not Detected IU/mL (.)
== END 2023-09-04 13:53 | disposition home or self-care (01) ==
LOC: LAB 13:52
PROVIDERS: ATTEND Physician Assistant Medical
DX: K70.31 Alcoholic cirrhosis of liver with ascites (principal)
CPT/HCPCS: 36415; 80053; 82105; 85025; 85610; 86317; 86704; 86709; 86803; 87340; 87522

== ENCOUNTER 2023-10-26 09:49 | Outpatient (CLI) | payer MEDICAID ==
[2023-10-26 10:10] LABS: BASOPHILS # (AUTO) 0.1 10^3/uL (0.0-0.1); BASOPHILS % (AUTO) 0.9 %; EOSINOPHILS # (AUTO) 0.5 10^3/uL (0.0-0.7); HCT - HEMATOCRIT 43.3 % (42.0-52.0); LYMPHOCYTES % (AUTO) 16.6 %; MEAN CORPUSCULAR HEMOGLOBIN 36.9 pg (27.0-31.0); MEAN CORPUSCULAR HGB CONC 34.6 g/dL (32.0-36.0); MEAN CORPUSCULAR VOLUME 106.7 fL (80.0-94.0); MEAN PLATELET VOLUME 9.8 fL (7.4-11.4); MONOCYTES # (AUTO) 1.1 10^3/uL (0.0-1.0); NEUTROPHILS # (AUTO) 8.2 10^3/uL (1.5-6.6); NEUTROPHILS % (AUTO) 68.6 %; PLT - PLATELET COUNT 144 10^3/uL (130-450); RED BLOOD COUNT 4.06 10^6/uL (4.70-6.10); RED CELL DISTRIBUTION WIDTH 12.3 % (12.0-15.0); WHITE BLOOD COUNT 11.9 x10^3/uL (4.8-10.8)
[2023-10-26 10:22] LABS: ALBUMIN 3.3 g/dL (3.2-5.5); ALBUMIN/GLOBULIN RATIO 0.9 (1.0-2.2); BILIRUBIN,TOTAL 2.9 mg/dL (0.2-1.0); CALCIUM 9.5 mg/dL (8.5-10.3); CREATININE 1.2 mg/dL (0.6-1.3); POTASSIUM 4.7 mmol/L (3.5-4.5)
[2023-10-26 10:30] LABS: INR 1.5 (0.8-1.2); PT - PROTHROMBIN TIME 16.3 secs (9.9-12.6)
== END 2023-10-26 09:50 | disposition home or self-care (01) ==
LOC: LAB 09:49
PROVIDERS: ATTEND Physician Assistant Medical
DX: K70.31 Alcoholic cirrhosis of liver with ascites (principal)
CPT/HCPCS: 36415; 80053; 82140; 85025; 85610

== ENCOUNTER 2023-11-23 10:31 | Outpatient (CLI) | payer MEDICAID ==
[2023-11-23 10:44] LABS: BASOPHILS # (AUTO) 0.1 10^3/uL (0.0-0.1); BASOPHILS % (AUTO) 0.8 %; EOSINOPHILS # (AUTO) 0.1 10^3/uL (0.0-0.7); EOSINOPHILS % (AUTO) 2.2 %; HCT - HEMATOCRIT 42.2 % (42.0-52.0); HGB - HEMOGLOBIN 14.4 g/dL (14.0-18.0); LYMPHOCYTES # (AUTO) 1.4 10^3/uL (1.5-3.5); MEAN CORPUSCULAR HEMOGLOBIN 36.6 pg (27.0-31.0); MEAN CORPUSCULAR HGB CONC 34.1 g/dL (32.0-36.0); MEAN CORPUSCULAR VOLUME 107.4 fL (80.0-94.0); MEAN PLATELET VOLUME 10.2 fL (7.4-11.4); MONOCYTES # (AUTO) 0.5 10^3/uL (0.0-1.0); MONOCYTES % (AUTO) 7.6 %; NEUTROPHILS # (AUTO) 4.4 10^3/uL (1.5-6.6); NEUTROPHILS % (AUTO) 68.1 %; PLT - PLATELET COUNT 130 10^3/uL (130-450); RED BLOOD COUNT 3.93 10^6/uL (4.70-6.10); RED CELL DISTRIBUTION WIDTH 12.9 % (12.0-15.0); WHITE BLOOD COUNT 6.4 x10^3/uL (4.8-10.8)
[2023-11-23 10:53] LABS: ESTIMATED AVERAGE GLUCOSE 91 mg/dL (70-100); HEMOGLOBIN A1c% 4.8 % (4.27-6.07)
[2023-11-23 10:56] LABS: ALBUMIN 3.3 g/dL (3.2-5.5); ALBUMIN/GLOBULIN RATIO 0.9 (1.0-2.2); BILIRUBIN,TOTAL 3.3 mg/dL (0.2-1.0); CALCIUM 9.5 mg/dL (8.5-10.3); CREATININE 1.1 mg/dL (0.6-1.3); MAGNESIUM 1.7 mg/dL (1.7-2.3); POTASSIUM 3.9 mmol/L (3.5-4.5)
== END 2023-11-23 10:32 | disposition home or self-care (01) ==
LOC: LAB 10:31
PROVIDERS: ATTEND Physician Assistant Medical
DX: K70.31 Alcoholic cirrhosis of liver with ascites (principal)
CPT/HCPCS: 36415; 80053; 83036; 83735; 83880; 85025

== ENCOUNTER 2024-03-07 10:35 | Outpatient (CLI) | payer MEDICAID ==
[2024-03-07 10:51] LABS: BASOPHILS # (AUTO) 0.1 10^3/uL (0.0-0.1); EOSINOPHILS # (AUTO) 0.1 10^3/uL (0.0-0.7); EOSINOPHILS % (AUTO) 2.3 %; HCT - HEMATOCRIT 39.2 % (42.0-52.0); HGB - HEMOGLOBIN 13.3 g/dL (14.0-18.0); LYMPHOCYTES # (AUTO) 1.2 10^3/uL (1.5-3.5); MEAN CORPUSCULAR HEMOGLOBIN 38.4 pg (27.0-31.0); MEAN CORPUSCULAR HGB CONC 33.9 g/dL (32.0-36.0); MEAN CORPUSCULAR VOLUME 113.3 fL (80.0-94.0); MEAN PLATELET VOLUME 10.3 fL (7.4-11.4); MONOCYTES # (AUTO) 0.4 10^3/uL (0.0-1.0); MONOCYTES % (AUTO) 8.1 %; NEUTROPHILS # (AUTO) 3.1 10^3/uL (1.5-6.6); NEUTROPHILS % (AUTO) 64.4 %; PLT - PLATELET COUNT 122 10^3/uL (130-450); RED BLOOD COUNT 3.46 10^6/uL (4.70-6.10); WHITE BLOOD COUNT 4.8 x10^3/uL (4.8-10.8)
[2024-03-07 11:07] LABS: INR 1.5 (0.8-1.2); PT - PROTHROMBIN TIME 16.2 secs (9.9-12.6)
[2024-03-07 11:10] LABS: ALBUMIN 3.6 g/dL (3.2-5.5); ALBUMIN/GLOBULIN RATIO 1.1 (1.0-2.2); ALKALINE PHOSPHATASE 147 IU/L (42-121); ALT ALANINE AMINOTRANSFERASE 52 IU/L (10-60); AST ASPARTATE AMINOTRANSFERASE 65 IU/L (10-42); BILIRUBIN,TOTAL 3.2 mg/dL (0.2-1.0); BUN - BLOOD UREA NITROGEN 20 mg/dL (6-20); CALCIUM 9.5 mg/dL (8.5-10.3); CARBON DIOXIDE - CO2 30 mmol/L (21-32); CHLORIDE 101 mmol/L (101-111); CHOL/HDL RATIO 2.9 (<5.0); CHOLESTEROL 109 mg/dL; CREATININE 1.2 mg/dL (0.6-1.3); GFR - MDRD 62 (>89); GLUCOSE 137 mg/dL (74-104); HDL CHOLESTEROL 37 mg/dL; LDL CHOLESTEROL,CALCULATED 61 mg/dL; LDL/HDL RATIO 1.6 (<3.6); POTASSIUM 4.7 mmol/L (3.5-4.5); SODIUM 135 mmol/L (135-145); TOTAL PROTEIN 6.9 g/dL (6.4-8.9); TRIGLYCERIDES 55 mg/dL; VLDL CHOLESTEROL 11 mg/dL
[2024-03-07 11:23] LABS: THYROID STIMULATING HORMONE 2.62 uIU/mL (0.34-5.60)
--- NOTE | 2024-03-07 14:21 | XRAY Report ---
PROCEDURE: Shoulder 2+V RT INDICATIONS: RIGHT SHOULDER JOINT PAIN TECHNIQUE: 3 views of the shoulder were acquired. COMPARISON: Right shoulder x-ray 05/01/2019 FINDINGS: Severe glenohumeral osteoarthritis with remodeling of the medial humeral head and osteophytes along t he inferior-medial margins. Mild acromioclavicular osteoarthritis. Enthesopathic changes along the gr eater tuberosity. Intra-articular bodies versus calcific tendinosis overlying the axillary pouch. No fracture or dislocation. IMPRESSION: Severe glenohumeral and mild acromioclavicular arthritis. Reviewed by: Marcello Richard MD on 03/07/2024 2:20 PM PDT Approved by: Marcello Richard MD on 03/07/2024 2:20 PM PDT Station ID: [id number]
[2024-03-07 14:57] LABS: ESTIMATED AVERAGE GLUCOSE 74 mg/dL (70-100); HEMOGLOBIN A1c% 4.2 % (4.27-6.07)
== END 2024-03-07 10:36 | disposition home or self-care (01) ==
LOC: DI 10:35
PROVIDERS: ATTEND Nurse Practitioner Gerontology
DX: M19.011 Primary osteoarthritis, right shoulder (principal); Z79.899 Other long term (current) drug therapy; K70.31 Alcoholic cirrhosis of liver with ascites
CPT/HCPCS: 36415; 80050; 80061; 82607; 83036; 83721; 85610

== ENCOUNTER 2024-04-24 08:21 | Outpatient (CLI) | payer MEDICAID ==
[2024-04-24 08:37] LABS: ABSOLUTE RETICS # AUTO 0.225 10^6/uL (0.020-0.110); BASOPHILS # (AUTO) 0.1 10^3/uL (0.0-0.1); BASOPHILS % (AUTO) 0.8 %; EOSINOPHILS # (AUTO) 0.2 10^3/uL (0.0-0.7); EOSINOPHILS % (AUTO) 2.6 %; HCT - HEMATOCRIT 42.7 % (42.0-52.0); HGB - HEMOGLOBIN 14.6 g/dL (14.0-18.0); LYMPHOCYTES # (AUTO) 1.3 10^3/uL (1.5-3.5); LYMPHOCYTES % (AUTO) 15.4 %; MEAN CORPUSCULAR HEMOGLOBIN 37.7 pg (27.0-31.0); MEAN CORPUSCULAR HGB CONC 34.2 g/dL (32.0-36.0); MEAN CORPUSCULAR VOLUME 110.3 fL (80.0-94.0); MEAN PLATELET VOLUME 9.6 fL (7.4-11.4); MONOCYTES # (AUTO) 0.8 10^3/uL (0.0-1.0); MONOCYTES % (AUTO) 9.5 %; NEUTROPHILS # (AUTO) 5.9 10^3/uL (1.5-6.6); NEUTROPHILS % (AUTO) 70.9 %; PLT - PLATELET COUNT 163 10^3/uL (130-450); RED BLOOD COUNT 3.87 10^6/uL (4.70-6.10); RED CELL DISTRIBUTION WIDTH 13.5 % (12.0-15.0); RETICULOCYTE COUNT % (AUTO) 5.82 % (0.5-2.3); WHITE BLOOD COUNT 8.4 x10^3/uL (4.8-10.8)
[2024-04-24 09:13] LABS: FERRITIN 326.7 ng/mL (23.9-336.2)
== END 2024-04-24 08:22 | disposition home or self-care (01) ==
LOC: LAB 08:21
PROVIDERS: ATTEND Nurse Practitioner Gerontology
DX: D64.9 Anemia, unspecified (principal)
CPT/HCPCS: 36415; 81599; 82607; 82728; 82746; 83540; 84466; 85025; 85045

== ENCOUNTER 2025-06-30 11:31 | Inpatient (IN) ==
--- OUTSIDE RECORDS SUMMARY | 2025-06-30 12:03 | EXTERNAL MEDICAL SUMMARY RPT | Continuity of Care Document ---
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 [facility] 2025-04-08 12:51 Major depressive disorder, recu rrent, moderate [facility] 2025-04-08 12:51 Unilateral inguinal hernia, without obstruction or gangrene, not specified as recurrent [facility] 2025-04-08 12:51 Umbilical hernia without obstru ction or gangrene [facility] 2025-04-08 12:51 Alcoholic cirrhosis of liver [facility] ascites [facility] 2025-04-08 12:51 Primary osteoarthritis, unspeci fied shoulder [facility] 2025-04-08 12:51 Chronic kidney disease, stage 3 b [facility] 2025-04-08 12:51 [facility] 2025-05-01 07:38 Other pancytopenia [facility] 2025-05-01 07:38 Anemia, unspecified [facility] 2025-05-01 08:56 Other pancytopenia [facility] 2025-05-01 09:36 Other pancytopenia [facility] 2025-05-01 09:36 Anemia, unspecified [facility] 2025-05-01 09:37 Other pancytopenia [facility] 2025-05-01 09:37 Anemia, unspecified [facility] 2025-05-01 09:45 Other pancytopenia [facility] 2025-05-01 09:45 Anemia, unspecified [facility] 2025-05-01 10:36 Other pancytopenia [facility] 2025-05-01 10:36 Anemia, unspecified [facility] 2025-05-01 12:16 Other pancytopenia [facility] 2025-05-02 00:04 Other pancytopenia [facility] 2025-05-27 13:37 Other pancytopenia [facility] 2025-05-27 13:37 Major depressive disorder, recu rrent, moderate [facility] 2025-05-27 13:37 Unilateral inguinal hernia, without obstruction or gangrene, not specified as recurrent [facility] 2025-05-27 13:37 Umbilical hernia without obstru ction or gangrene [facility] 2025-05-27 13:37 Alcoholic cirrhosis of liver [facility] ascites [facility] 2025-05-27 13:37 Primary osteoarthritis, unspeci fied shoulder [facility] 2025-05-27 13:37 Encounter for palliative care [facility] 2025-06-04 12:11 Other pancytopenia [facility] 2025-06-04 12:11 Anemia, unspecified [facility] 2025-06-18 13:21 Encounter for palliative care [facility] 2025-06-23 11:53 Other pancytopenia [facility] 2025-06-23 11:53 Anemia, unspecified [facility] 2025-06-25 08:52 Other pancytopenia [facility] 2025-06-25 08:52 Anemia, unspecified [facility] 2025-06-25 13:33 Other pancytopenia [facility] 2025-06-25 13:33 Anemia, unspecified [facility] 2025-06-25 13:51 Other pancytopenia [facility] 2025-06-25 13:51 Anemia, unspecified [facility] 2025-06-25 14:37 Other pancytopenia [facility] 2025-06-25 14:37 Anemia, unspecified [facility] 2025-06-25 15:11 Other pancytopenia [facility] 2025-06-25 15:11 Anemia, unspecified [facility] 2025-06-25 15:15 Other pancytopenia [facility] 2025-06-25 15:15 Anemia, unspecified [facility] 2025-06-27 08:16 Other pancytopenia [facility] Results/Labs test date facility value unit notes Result panel 1 NUCLEATED RED BLOOD CELLS AUTO 2025-05-01 09:05 [facility].0 /100wbc (missing) NRBC ABSOLUTE COUNT (AUTO) 2025-05-01 09:05 [facility] 0.00 x10 3/ul (missing) BASOPHILS # (AUTO) 2025-05-01 09:05 [facility] 0.1 10 3/ul (missing) EOSINOPHILS # (AUTO) 2025-05-01 09:05 [facility] 0.3 10 3/ul (missing) MONOCYTES # (AUTO) 2025-05-01 09:05 [facility] 0.5 10 3/ul (missing) ALBUMIN/GLOBULIN RATIO 2025-05-01 09:05 [facility] 0.8 (missing) (missing) LYMPHOCYTES # (AUTO) 2025-05-01 09:05 [facility] 0.8 10 3/ul (missing) CREATININE 2025-05-01 09:05 [facility] 0.9 mg/dl As of February 2023 testing method has changed, this may include reference ranges. MEAN CORPUSCULAR VOLUME 2025-05-01 09:05 [facility] 104.9 fl (missing) GLUCOSE 2025-05-01 09:05 [facility] 112 mg/dl As of February 2023 testing method has changed, this may include reference ranges. BUN - BLOOD UREA NITROGEN 2025-05-01 09:05 [facility] 12 mg/dl As of February 2023 testing method has changed, this may include reference ranges. HGB - HEMOGLOBIN 2025-05-01 09:05 [facility] 12.2 g/dl (missing) PLT - PLATELET COUNT 2025-05-01 09:05 [facility] 129 10 3/ul (missing) SODIUM 2025-05-01 09:05 [facility] 133 mmol/l No RED CELL DISTRIBUTION WIDTH 2025-05-01 09:05 [facility] 14.9 % (missing) ALKALINE PHOSPHATASE 2025-05-01 09:05 [facility] 168 iu/l As of February 2023 testing method has changed, this may include reference ranges. TRANSFERRIN 2025-05-01 09:05 [facility] 202 mg/dl As of February 2023 testing method has changed, this may include reference ranges. % IRON SATURATION 2025-05-01 09:05 [facility] 28 % (missing) TOTAL IRON BINDING CAPACITY 2025-05-01 09:05 [facility] 283 ug/dl (missing) CARBON DIOXIDE - CO2 2025-05-01 09:05 [facility] 29 mmol/l As of February 2023 testing method has changed, this may include reference ranges. ALBUMIN 2025-05-01 09:05 [facility] 3.2 g/dl As of February 2023 testing method has changed, this may include reference ranges. NEUTROPHILS # (AUTO) 2025-05-01 09:05 [facility] 3.4 10 3/ul (missing) RED BLOOD COUNT 2025-05-01 09:05 [facility] 3.45 10 6/ul (missing) POTASSIUM 2025-05-01 09:05 [facility] 3.5 mmol/l As of February 2023 testing method has changed, this may include reference ranges. ALT ALANINE AMINOTRANSFERASE 2025-05-01 09:05 [facility] 33 iu/l As of February 2023 testing method has changed, this may include reference ranges. MEAN CORPUSCULAR HGB CONC 2025-05-01 09:05 [facility] 33.7 g/dl (missing) MEAN CORPUSCULAR HEMOGLOBIN 2025-05-01 09:05 [facility] 35.4 pg (missing) HCT - HEMATOCRIT 2025-05-01 09:05 [facility] 36.2 % (missing) GLOBULIN 2025-05-01 09:05 [facility] 4.0 g/dl (missing) BILIRUBIN,TOTAL 2025-05-01 09:05 [facility] 4.1 mg/dl As of February 2023 testing method has changed, this may include reference ranges. ANION GAP 2025-05-01 09:05 [facility] 5.0 (missing) (missing) WHITE BLOOD COUNT 2025-05-01 09:05 [facility] 5.0 x10 3/ul (missing) AST ASPARTATE AMINOTRANSFERASE 2025-05-01 09:05 [facility] 53 iu/l As of February 2023 testing method has changed, this may include reference ranges. TOTAL PROTEIN 2025-05-01 09:05 [facility] 7.2 g/dl As of February 2023 testing method has changed, this may include reference ranges. IRON 2025-05-01 09:05 [facility] 78 ug/dl As of February 2023 testing method has changed, this may include reference ranges. FERRITIN 2025-05-01 09:05 [facility] 79.1 ng/ml (missing) CALCIUM 2025-05-01 09:05 [facility] 8.9 mg/dl As of February 2023 testing method has changed, this may include reference ranges. GFR - MDRD 2025-05-01 09:05 [facility] 86 (missing) The IDMS-traceable MDRD Study Equation has been validated extensively in and populations between the ages of 18 and 70 with impaired kidney function (eGFR < 60 mL/min/1.73m2) and has shown good performance for patients with all common causes of kidney disease. Although this equation has not been validated for patients older than 70, an MDRD-derived eGFR may still be a useful tool for providers caring for patients older than 70. References: http://www.nkdep. nih.gov/lab-evalu ation/gfr/creatin ine-stand ardization, last updated October 2011. MEAN PLATELET VOLUME 2025-05-01 09:05 [facility] 9.1 fl (missing) CHLORIDE 2025-05-01 09:05 [facility] 99 mmol/l As of February 2023 testing method has changed, this may include reference ranges. Result panel 2 NUCLEATED RED BLOOD CELLS AUTO 2025-06-25 13:48 [facility] 0.0 /100wbc (missing) NRBC ABSOLUTE COUNT (AUTO) 2025-06-25 13:48 [facility] 0.00 x10 3/ul (missing) BASOPHILS # (AUTO) 2025-06-25 13:48 [facility] 0.1 10 3/ul (missing) EOSINOPHILS # (AUTO) 2025-06-25 13:48 [facility] 0.1 10 3/ul (missing) MONOCYTES # (AUTO) 2025-06-25 13:48 [facility] 0.4 10 3/ul (missing) LYMPHOCYTES # (AUTO) 2025-06-25 13:48 [facility] 0.7 10 3/ul (missing) CRP - C-REACTIVE PROTEIN 2025-06-25 13:48 [facility] 0.7 mg/dl As of February 2023 test ing method has changed, this may include reference ranges. ALBUMIN/GLOBULIN RATIO 2025-06-25 13:48 [facility] 0.8 (missing) (missing) CREATININE 2025-06-25 13:48 [facility] 1.0 mg/dl As of February 2023 test ing method has changed, this may include reference ranges. MEAN CORPUSCULAR VOLUME 2025-06-25 13:48 [facility] 109.0 fl (missing) HGB - HEMOGLOBIN 2025-06-25 13:48 [facility] 11.9 g/dl (missing) FERRITIN 2025-06-25 13:48 [facility] 116.3 ng/ml (missing) PLT - PLATELET COUNT 2025-06-25 13:48 [facility] 119 10 3/ul (missing) IRON 2025-06-25 13:48 [facility] 119 ug/dl As of February 2023 test ing method has changed, this may include reference ranges. SODIUM 2025-06-25 13:48 [facility] 131 mmol/l Unknown RED CELL DISTRIBUTION WIDTH 2025-06-25 13:48 [facility] 14.1 % (missing) ALKALINE PHOSPHATASE 2025-06-25 13:48 [facility] 162 iu/l As of February 2023 test ing method has changed, this may include reference ranges. GLUCOSE 2025-06-25 13:48 [facility] 179 mg/dl As of February 2023 test ing method has changed, this may include reference ranges. BUN - BLOOD UREA NITROGEN 2025-06-25 13:48 [facility] 18 mg/dl As of February 2023 test ing method has changed, this may include reference ranges. TRANSFERRIN 2025-06-25 13:48 [facility] 226 mg/dl As of February 2023 test ing method has changed, this may include reference ranges. CARBON DIOXIDE - CO2 2025-06-25 13:48 [facility] 28 mmol/l As of February 2023 test ing method has changed, this may include reference ranges. ALBUMIN 2025-06-25 13:48 [facility] 3.1 g/dl As of February 2023 test ing method has changed, this may include reference ranges. RED BLOOD COUNT 2025-06-25 13:48 [facility] 3.21 10 6/ul (missing) AFP SERUM TUMOR MARKER 2025-06-25 13:48 [facility] 3.4 ng/ml [employer] [employer] Electrochemiluminescence Immunoassay (ECLIA) Values obtained with different assay methods or kits cannot be used interchangeably. Results cannot be interpreted as absolute evidence of the presence or absence of malignant disease. This test is not interpretable in females. Performed at: [facility] [address], [place], [place] [id number] Account Services Analyst: Bradly Mcclain MD, Phone: [phone] GLOBULIN 2025-06-25 13:48 [facility] 3.7 g/dl (missing) TOTAL IRON BINDING CAPACITY 2025-06-25 13:48 [facility] 316 ug/dl (missing) ALT ALANINE AMINOTRANSFERASE 2025-06-25 13:48 [facility] 32 iu/l As of February 2023 test ing method has changed, this may include reference ranges. MEAN CORPUSCULAR HGB CONC 2025-06-25 13:48 [facility] 34.0 g/dl (missing) HCT - HEMATOCRIT 2025-06-25 13:48 [facility] 35.0 % (missing) MEAN CORPUSCULAR HEMOGLOBIN 2025-06-25 13:48 [facility] 37.1 pg (missing) % IRON SATURATION 2025-06-25 13:48 [facility] 38 % (missing) POTASSIUM 2025-06-25 13:48 [facility] 4.3 mmol/l As of February 2023 test ing method has changed, this may include reference ranges. NEUTROPHILS # (AUTO) 2025-06-25 13:48 [facility] 4.9 10 3/ul (missing) BILIRUBIN,TOTAL 2025-06-25 13:48 [facility] 5.3 mg/dl As of February 2023 test ing method has changed, this may include reference ranges. AST ASPARTATE AMINOTRANSFERASE 2025-06-25 13:48 [facility] 54 iu/l As of February 2023 test ing method has changed, this may include reference ranges. ANION GAP 2025-06-25 13:48 [facility] 6.0 (missing) (missing) WHITE BLOOD COUNT 2025-06-25 13:48 [facility] 6.1 x10 3/ul (missing) TOTAL PROTEIN 2025-06-25 13:48 [facility] 6.8 g/dl As of February 2023 test ing method has changed, this may include reference ranges. GFR - MDRD 2025-06-25 13:48 [facility] 76 (missing) The IDMS-traceable M DRD Study Equation has been validated extensively in and populations between the ages of 18 and 70 with impaired kidney function (eGFR < 60 mL/min/1.73m2) and has shown good performance for patients with all common causes of kidney disease. Although this equation has not been validated for patients older than 70, an MDRD-derived eGFR may still be a useful tool for providers caring for patients older than 70. References: http://www.nkdep.nih.gov/la b-evaluation/gfr/creatinine -stand ardization, last updated October 2011. CALCIUM 2025-06-25 13:48 [facility] 8.6 mg/dl As of February 2023 test ing method has changed, this may include reference ranges. MEAN PLATELET VOLUME 2025-06-25 13:48 [facility] 9.7 fl (missing) CHLORIDE 2025-06-25 13:48 [facility] 97 mmol/l As of February 2023 test ing method has changed, this may include reference ranges. Social History date description facility
--- NOTE | 2025-06-30 12:16 | ED Physician Documentation ---
History of Present Illness Stated complaint Stated Complaint: ABD PX, SWELLING, GI, N/V/D Chief complaint Chief Complaint: Abd Pain History obtained from History obtained from: Patient and Family History of Present Illness Pain level max: 8 Pain level now: 8 Additonal information Additional information: Patient is a 64-year-old male with history of umbilical hernia, cirrhosis, pancytopenia, chronic kidney disease. He states that 2 days ago his umbilical hernia "popped out" and he has not been able to push it back again since yesterday. Has had nausea and vomiting. States he has an inguinal hernia as well but it is not stuck. No fevers. No chills. No cough or congestion. No blood in the emesis. He is on palliative care. Review of Systems Constitutional Denies: Fever or Chills Gastrointestinal Reports: Vomiting; Denies: [place] blood emesis or Coffee grounds in vomit Meds/Allgy Home Medications Ambulatory Orders Medication Instructions Recorded Confirmed apixaban 5 mg tablet 5 mg PO BID 06/10/24 5 nitroglycerin 0.4 mg sublingual 0.4 mg sublingual Q5M PRN chest 07/23/24 06/25/25 tablet pain #30 tabs docusate sodium 250 mg capsule 250 mg PO DAILY PRN 06/25/25 furosemide 40 mg tablet 40 mg PO QAM #90 tabs 06/25/25 metoprolol succinate 25 mg 25 mg PO BID 04/01/2506/25 tablet,extended release 24 hr pantoprazole 20 mg tablet,delayed 20 mg PO QDAY 06/25/25 release spironolactone 100 mg tablet 100 mg PO QAM 04/01/25 oxycodone 5 mg tablet 2.5 - 5 mg (0.5 - 1 x 5 mg) PO BID 06/12/25 06/25/25 PRN severe pain #60 tabs Allergies Allergies Allergy/AdvReac Type Severity Reaction Status Date / Time No Known Drug Allergies Allergy Verified 06/30/25 11:52 PFSH Active Problems All Active Problems (Updated 06/30/25 @ 14:30 by Gavin Chavarria MD) Bowel obstruction (Acute) Incarcerated hernia (Acute) Left inguinal hernia (Acute) 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) Moderate recurrent major depression (Acute) Fatigue (Acute) Umbilical hernia (Acute 06/07/23) Chronic insomnia (Acute 12/27/23) Restless leg syndrome (Acute 12/27/23) Healthcare maintenance (Acute) Pancytopenia (Acute) Dizziness (Acute) Anemia (Acute) Anemia (Acute) Advanced care planning/counseling discussion (Acute) Atrial fibrillation (Acute) Alcoholic cirrhosis of liver with ascites (Acute 06/06/23) CKD stage G3b/A1, GFR 30-44 and albumin creatinine ratio <30 mg/g (Acute) Thrombocytopenia (Acute) Glenohumeral arthritis (Acute) Anemia (Acute) Medical History Medical History (Updated 06/30/25 @ 14:30 by Gavin Chavarria MD) History of cardioversion Sleep apnea Inguinal hernia Right shoulder injury Chronic intermittent hypoxia with obstructive sleep apnea (12/27/23) Single acquired cyst of kidney (10/05/23) Periodic health assessment, general screening, adult (08/10/23) Depression with anxiety (06/20/23) 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) Inguinal hernia, right (05/08/23) Hyperglycemia (07/17/23) Contusion of abdominal wall, sequela (06/07/23) Chronic atrial fibrillation, unspecified (06/07/23) Surgical History Surgical History History of cardiac ablation for atrial fibrillation Family History Family History (Updated 11/04/24 @ 21:37 by DEBBIE Lu, MSN) Other Adopted Social History Social History (Updated 04/02/25 @ 13:00 by DEBBIE Lu, MSN) Smoking Status: Current some day smoker Number of Years Smoked: 40 Living arrangement: At home Marital Status: Living Condition: With family Level: Independent Do you feel safe in your home environment?: Yes History of physical, verbal, emotional, or financial abuse?: No ETOH Use: None ETOH - Additional Notes: Former history of daily, heavy alcohol use Substance Use: cannabis (any form) 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 Exam Exam Vital Signs: Vital Signs x48h Temp Pulse Resp BP Pulse Ox O2 Flow Rate 06/30/25 18:12 94 06/30/25 18:11 36.6 C 06/30/25 18:00 98 20 127/87 94 2 06/30/25 17:30 95 2 06/30/25 17:29 87 L 06/30/25 17:00 107 H 14 106/78 93 06/30/25 15:13 101 H 16 116/68 95 06/30/25 13:11 36.8 C 109 H 18 129/87 93 06/30/25 12:46 107 H 16 110/81 93 06/30/25 12:41 72 18 110/81 97 Constitutional normal general appearance Obviously jaundiced HENMT oral mucous membranes normal Eyes PERRL Neck/C-Spine trachea midline Respiratory breath sounds equal bilaterally and normal respiratory effort Cardiovascular normal heart rate noted and regular rhythm noted Gastrointestinal Moderately sized umbilical hernia, dark in color, tender to palpation. Psychiatry oriented x3 Skin Jaundiced Results Vitals Vitals: Vital Signs - 24 hr 06/30/25 11:47 06/30/25 12:36 06/30/25 12:41 Temperature 36.4 C L Temperature Source Temporal Artery Scan Pulse Rate 103 H 72 Respiratory Rate 20 18 Blood Pressure 127/89 110/81 O2 Saturation 97 97 O2 Source Room air Room air If not protocol: Oxygen Flow, liters/minute Pain Intensity 8 8 8 06/30/25 12:46 06/30/25 13:11 06/30/25 13:27 Temperature 36.8 C Temperature Source Oral Pulse Rate 107 H 109 H Respiratory Rate 16 18 Blood Pressure 110/81 129/87 O2 Saturation 93 93 O2 Source Room air Room air If not protocol: Oxygen Flow, liters/minute Pain Intensity 8 06/30/25 13:31 06/30/25 15:07 06/30/25 15:08 Temperature Temperature Source Pulse Rate Respiratory Rate Blood Pressure O2 Saturation O2 Source If not protocol: Oxygen Flow, liters/minute Pain Intensity 8 8 8 06/30/25 15:13 06/30/25 15:53 06/30/25 17:00 Temperature Temperature Source Pulse Rate 101 H 107 H Respiratory Rate 16 14 Blood Pressure 116/68 106/78 O2 Saturation 95 93 O2 Source Room air Room air If not protocol: Oxygen Flow, liters/minute Pain Intensity 4 6 06/30/25 17:27 06/30/25 17:29 06/30/25 17:30 Temperature Temperature Source Pulse Rate Respiratory Rate Blood Pressure O2 Saturation 87 L 95 O2 Source Room air Nasal cannula If not protocol: Oxygen Flow, liters/minute 2 Pain Intensity 5 06/30/25 18:00 06/30/25 18:11 06/30/25 18:12 Temperature 36.6 C Temperature Source Oral Pulse Rate 98 Respiratory Rate 20 Blood Pressure 127/87 O2 Saturation 94 94 O2 Source Nasal cannula Room air If not protocol: Oxygen Flow, liters/minute 2 Pain Intensity Oxygen O2 Source Room air Labs Labs: Laboratory Tests 06/30/25 06/30/25 06/30/25 12:07 12:30 14:22 WBC 16.1 H RBC 4.01 L Hgb 14.4 Hct 43.3 MCV 108.0 H MCH 35.9 H MCHC 33.3 RDW 13.7 Plt Count 171 MPV 9.0 Neut # (Auto) 14.3 H Lymph # (Auto) 0.6 L [place] # (Auto) 1.0 Eos # (Auto) 0.0 Baso # (Auto) 0.1 Absolute Nucleated RBC 0.00 Nucleated RBC % 0.0 PT 17.1 H INR 1.5 H APTT 35.6 H Sodium 130 L Potassium 4.4 Chloride 95 L Carbon Dioxide 23 Anion Gap 12.0 BUN 21 H Creatinine 1.2 Estimated GFR (MDRD) 61 L Glucose 126 H Lactic Acid 2.8 H Calcium 9.4 Total Bilirubin 11.6 H AST 40 ALT 28 Alkaline Phosphatase 169 H Total Protein 7.6 Albumin 3.5 Globulin 4.1 Albumin/Globulin Ratio 0.9 L Lipase 28 Urine Color DARK YELLOW Urine Clarity CLEAR Urine pH 6.0 Ur Specific [place] 1.010 Urine Protein NEGATIVE Urine Glucose (UA) NEGATIVE Urine Ketones NEGATIVE Urine Occult Blood NEGATIVE Urine Nitrite NEGATIVE Urine Bilirubin NEGATIVE Urine Urobilinogen 2 H Ur Leukocyte Esterase NEGATIVE Ur Microscopic Review NOT INDICATED Urine Culture Comments NOT INDICATED Rads (name of study) abd/pelvis CT: Relevant Findings:: Final report received PD Medical Decision Making ED course Complexity details: reviewed results, re-evaluated patient, considered differential and d/w patient ED course: Patient with an irreducible incarcerated umbilical hernia. I consulted Dr. London, general surgery at approximately 1:05 PM, he came and attempted to reduce the hernia as well and was unsuccessful. Surgery was recommended. Patient and want us to contact the [facility] to see if he can have surgery repair. Explained the urgent nature of this and that delaying surgery could cause bowel necrosis and further complications, they still want us to try transferring to [facility]. CT scan images show an incarcerated hernia with a proximal bowel obstruction. No perforation. No free air. Has a small right pleural effusion. No significant intra-abdominal ascites The [facility] reviewed all of the patient's imaging and does not feel that he needs higher level of care. They rejected the transfer at approximately 1620. I then contacted Dr. London again, he will come and evaluate the patient and plan on taking him to the operating room. PROCEDURE: CT Abdomen/Pelvis W INDICATIONS: abdominal pain, incarcerated umbilical hernia CONTRAST: 100ml omni 300 TECHNIQUE: After the administration of intravenous contrast, a CT scan of the abdomen and pelvis was performed. Images were recorded and evaluated at appropriate window settings. Reformats: coronal and sagittal. For radiation dose reduction, the following was used: automated exposure control, adjustment of mA and/or kV according to patient size. COMPARISON: CT abdomen pelvis on 12/10/2024. FINDINGS: Image quality: Diagnostic. Lower chest: Right moderate and left small pleural effusion. Paraesophageal varices. Liver: Cirrhotic liver morphology no focal solid mass. Gallbladder: Nonspecific gallbladder wall thickening with multiple gallstones, which measure up to 9 mm. Biliary tree: No intrahepatic or extrahepatic dilation, accounting for age. Spleen: No splenomegaly. Pancreas: No pancreatic ductal dilation. Adrenals: No adrenal nodule. Kidneys and ureters: No hydronephrosis. No nephrolithiasis. Thinly septated left lower pole Bosniak II cyst. Stomach, bowel and peritoneum: Dilated proximal small bowel secondary with a periumbilical bowel and fat-containing hernia. The distal small bowel to the loop within the hernia sac is decompressed. There is mild mural thickening of the descending colon, which may represent findings of portal hypertensive colopathy. No free air. Small volume free fluid in the left upper quadrant adjacent to areas of dilated small bowel and within the hernia sac anterior to the loop of bowel. Normal appendix. Sigmoid diverticulosis without diverticulitis. Mild misting of the central mesentery. Lymph nodes: No central or retroperitoneal adenopathy. Vessels: No infrarenal aortic aneurysm. Patent portal vein with recanalized umbilical vein. Enlarged right inferior epigastric artery. Please note there is a loop of the left inferior epigastric artery immediately cranial to the periumbilical hernia.. PELVIS Reproductive organs: Right hydrocele. Bilateral fat-containing inguinal hernias. Bladder: No abnormal wall thickening. Pelvic lymph nodes: No pelvic adenopathy by size criteria. Bones: No aggressive osseous abnormality. Multilevel degenerative disc disease, which which is severe at L1-2 in the lumbar spine Other: Bowel containing ventral periumbilical abdominal hernia, with the abdominal wall defect measuring 1.7 x 2.5 cm (sagittal series 6 image 83; axial series 2 image 98) IMPRESSION: 1. Small bowel obstruction secondary to a periumbilical bowel and fat- containing hernia. Small volume free fluid within the hernia sac is concerning for strangulation. Recommend surgical consultation. 2. Cirrhotic liver morphology with sequela of portal hypertension including paraesophageal varices. 3. Right moderate and left small pleural effusions. 4. Cholelithiasis with gallbladder wall thickening, recommend correlation with biliary studies as gallbladder wall thickening is nonspecific and may be secondary to third spacing versus possible cholecystitis. Discharge Plan Discharge Patient Disposition: ED Transfer to [facility] Condition: Stable Clinical Impression: Incarcerated hernia Bowel obstruction Qualifiers: Intestinal obstruction type: unspecified Intestinal obstruction extent: unspecified extent Qualified Code(s): K56.609 - Unspecified intestinal obstruction, unspecified as to partial versus complete obstruction Interventions: ED Admission Assessment Last Done: 06/30/25 18:36 Vitals documented within 30 minutes of discharge?: Yes
[2025-06-30 12:17] LABS: HCT - HEMATOCRIT 43.3 % (42.0-52.0); HGB - HEMOGLOBIN 14.4 g/dL (14.0-18.0); MEAN PLATELET VOLUME 9.0 fL (7.4-11.4); NRBC ABSOLUTE COUNT (AUTO) 0.00 x10^3/uL; NUCLEATED RED BLOOD CELLS AUTO 0.0 /100WBC; PLT - PLATELET COUNT 171 10^3/uL (130-450); RED CELL DISTRIBUTION WIDTH 13.7 % (12.0-15.0)
[2025-06-30] MEDS: SODIUM CHLORIDE 0.9% 1,000 ML IV STA ×2 (12:35→15:08)
[2025-06-30 12:36] LABS: ALT ALANINE AMINOTRANSFERASE 28.0 IU/L (10-60); AST ASPARTATE AMINOTRANSFERASE 40.0 IU/L (10-42); BUN - BLOOD UREA NITROGEN 21.0 mg/dL (6-20); CARBON DIOXIDE - CO2 23.0 mmol/L (21-32); CREATININE 1.2 mg/dL (0.6-1.3); GFR - MDRD 61.0 (>89)
[2025-06-30] MEDS: MIDAZOLAM 2 MG/2 ML VIAL IVP STA (12:36)
[2025-06-30] MEDS: HYDROmorphone 1 MG/ML CARPUJECT IVP STA ×2 (12:36→13:27)
[2025-06-30 12:40] LABS: INR 1.5 (0.8-1.2); PT - PROTHROMBIN TIME 17.1 secs (9.9-12.6)
[2025-06-30] MEDS: ONDANSETRON 4 MG/2 ML VIAL IVP STA (12:40)
--- NOTE | 2025-06-30 14:25 | CT Report ---
PROCEDURE: CT Abdomen/Pelvis W INDICATIONS: abdominal pain, incarcerated umbilical hernia CONTRAST: 100ml omni 300 TECHNIQUE: After the administration of intravenous contrast, a CT scan of the abdomen and pelvis was performed. Images were recorded and evaluated at appropriate window settings. Reformats: coronal and sagittal. For radiation dose reduction, the following was used: automated exposure control, adjustment of mA and/or kV according to patient size. COMPARISON: CT abdomen pelvis on 12/10/2024. FINDINGS: Image quality: Diagnostic. Lower chest: Right moderate and left small pleural effusion. Paraesophageal varices. Liver: Cirrhotic liver morphology no focal solid mass. Gallbladder: Nonspecific gallbladder wall thickening with multiple gallstones, which measure up to 9 mm. Biliary tree: No intrahepatic or extrahepatic dilation, accounting for age. Spleen: No splenomegaly. Pancreas: No pancreatic ductal dilation. Adrenals: No adrenal nodule. Kidneys and ureters: No hydronephrosis. No nephrolithiasis. Thinly septated left lower pole Bosniak II cyst. Stomach, bowel and peritoneum: Dilated proximal small bowel secondary with a periumbilical bowel and fat-containing hernia. The distal small bowel to the loop within the hernia sac is decompressed. There is mild mural thickening of the descending colon, which may represent findings of portal hypertensive colopathy. No free air. Small volume free fluid in the left upper quadrant adjacent to areas of dilated small bowel and within the hernia sac anterior to the loop of bowel. Normal appendix. Sigmoid diverticulosis without diverticulitis. Mild misting of the central mesentery. Lymph nodes: No central or retroperitoneal adenopathy. Vessels: No infrarenal aortic aneurysm. Patent portal vein with recanalized umbilical vein. Enlarged right inferior epigastric artery. Please note there is a loop of the left inferior epigastric artery immediately cranial to the periumbilical hernia.. PELVIS Reproductive organs: Right hydrocele. Bilateral fat-containing inguinal hernias. Bladder: No abnormal wall thickening. Pelvic lymph nodes: No pelvic adenopathy by size criteria. Bones: No aggressive osseous abnormality. Multilevel degenerative disc disease, which which is severe at L1-2 in the lumbar spine Other: Bowel containing ventral periumbilical abdominal hernia, with the abdominal wall defect measuring 1.7 x 2.5 cm (sagittal series 6 image 83; axial series 2 image 98) IMPRESSION: 1. Small bowel obstruction secondary to a periumbilical bowel and fat- containing hernia. Small volume free fluid within the hernia sac is concerning for strangulation. Recommend surgical consultation. 2. Cirrhotic liver morphology with sequela of portal hypertension including paraesophageal varices. 3. Right moderate and left small pleural effusions. 4. Cholelithiasis with gallbladder wall thickening, recommend correlation with biliary studies as gallbladder wall thickening is nonspecific and may be secondary to third spacing versus possible cholecystitis. Reviewed by: Neptali Gilliam MD on 06/30/2025 2:21 PM PST Approved by: Neptali Gilliam MD on 06/30/2025 2:21 PM PST Station ID: [id number]
[2025-06-30 14:55] LABS: GLUCOSE, URINE (UA) NEGATIVE (NEGATIVE); KETONES,URINE (UA) NEGATIVE (NEGATIVE); OCCULT BLOOD,URINE NEGATIVE (NEGATIVE)
[2025-06-30] MEDS: HYDROmorphone 1 MG/ML CARPUJECT IVP PRN (15:08)
--- NOTE | 2025-06-30 16:43 | CONSULTATION NOTE ---
Referring Provider Name of Referring Provider:: Dr. Chavarria Consult Date: 06/30/25 Chief Complaint Chief Complaint Chief Complaint: Abdominal pain, nausea and vomiting History of Present Illness Admitted From Admitted From:: Emergency department History Obtained From History obtained from: Patient History of Present Illness HPI Comment/Other: 64 yo M with history of umbilical hernia, cirrhosis, pancytopenia and chronic kidney disease who states that 2 days ago his umbilical hernia "popped out" and he has not been able to push it back again since yesterday. He also endorses nausea, vomiting and obstipation. States he has an inguinal hernia as well but it is not stuck. Denies fevers, chills, dysuria, headaches and is currently a palliative care patient. During my discussion with the patient and his sister they state that he has been seen by surgeons in the past and told he was too high risk to undergo surgery due to his pancytopenia and liver disease. Due to this they request transfer to for management of this acute hernia incarceration. 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) Moderate recurrent major depression (Acute) Fatigue (Acute) Umbilical hernia (Acute 06/07/23) Chronic insomnia (Acute 12/27/23) Restless leg syndrome (Acute 12/27/23) Healthcare maintenance (Acute) Pancytopenia (Acute) Dizziness (Acute) Anemia (Acute) Anemia (Acute) Advanced care planning/counseling discussion (Acute) Atrial fibrillation (Acute) Alcoholic cirrhosis of liver with ascites (Acute 06/06/23) CKD stage G3b/A1, GFR 30-44 and albumin creatinine ratio <30 mg/g (Acute) Thrombocytopenia (Acute) Glenohumeral arthritis (Acute) Anemia (Acute) Medical History Medical History (Updated 06/30/25 @ 14:30 by Gavin Chavarria MD) History of cardioversion Sleep apnea Inguinal hernia Right shoulder injury Chronic intermittent hypoxia with obstructive sleep apnea (12/27/23) Single acquired cyst of kidney (10/05/23) Periodic health assessment, general screening, adult (08/10/23) Depression with anxiety (06/20/23) 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) Inguinal hernia, right (05/08/23) Hyperglycemia (07/17/23) Contusion of abdominal wall, sequela (06/07/23) Chronic atrial fibrillation, unspecified (06/07/23) Surgical History Surgical History History of cardiac ablation for atrial fibrillation Family History Family History (Updated 11/04/24 @ 21:37 by DEBBIE Lu, MSN) Other Adopted Social History Social History (Updated 04/02/25 @ 13:00 by DEBBIE Lu, MSN) Smoking Status: Current some day smoker Number of Years Smoked: 40 Living arrangement: At home Marital Status: Living Condition: With family Level: Independent Do you feel safe in your home environment?: Yes History of physical, verbal, emotional, or financial abuse?: No ETOH Use: None ETOH - Additional Notes: Former history of daily, heavy alcohol use Substance Use: cannabis (any form) 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 Meds/Allgy Home Medications Ambulatory Orders Medication Instructions Recorded Confirmed apixaban 5 mg tablet 5 mg PO BID 06/10/24 5 nitroglycerin 0.4 mg sublingual 0.4 mg sublingual Q5M PRN chest 07/23/24 06/25/25 tablet pain #30 tabs docusate sodium 250 mg capsule 250 mg PO DAILY PRN 06/25/25 furosemide 40 mg tablet 40 mg PO QAM #90 tabs 06/25/25 metoprolol succinate 25 mg 25 mg PO BID 04/01/2506/25 tablet,extended release 24 hr pantoprazole 20 mg tablet,delayed 20 mg PO QDAY 06/25/25 release spironolactone 100 mg tablet 100 mg PO QAM 04/01/25 oxycodone 5 mg tablet 2.5 - 5 mg (0.5 - 1 x 5 mg) PO BID 06/12/25 06/25/25 PRN severe pain #60 tabs Allergies Allergies Allergy/AdvReac Type Severity Reaction Status Date / Time No Known Drug Allergies Allergy Verified 06/30/25 11:52 Results Lab Results Lab results reviewed: Yes 06/30/25 12:07 06/30/25 12:07 Other Lab Results: Lab Results x24hrs 06/30/25 06/30/25 06/30/25 Range/Units 14:22 12:30 12:07 WBC 16.1 H (4.8-10.8) x10^3/uL RBC 4.01 L (4.70-6.10) 10^6/uL Hgb 14.4 (14.0-18.0) g/dL Hct 43.3 (42.0-52.0) % MCV 108.0 H (80.0-94.0) fL MCH 35.9 H (27.0-31.0) pg MCHC 33.3 (32.0-36.0) g/dL RDW 13.7 (12.0-15.0) % Plt Count 171 (130-450) 10^3/uL MPV 9.0 (7.4-11.4) fL Neut # (Auto) 14.3 H (1.5-6.6) 10^3/uL Lymph # (Auto) 0.6 L (1.5-3.5) 10^3/uL [place] # (Auto) 1.0 (0.0-1.0) 10^3/uL Eos # (Auto) 0.0 (0.0-0.7) 10^3/uL Baso # (Auto) 0.1 (0.0-0.1) 10^3/uL Absolute Nucleated RBC 0.00 x10^3/uL Nucleated RBC % 0.0 /100WBC PT 17.1 H (9.9-12.6) secs INR 1.5 H (0.8-1.2) APTT 35.6 H (24.9-33.3) secs Sodium 130 L (135-145) mmol/L Potassium 4.4 (3.5-4.5) mmol/L Chloride 95 L (101-111) mmol/L Carbon Dioxide 23 (21-32) mmol/L Anion Gap 12.0 (6-13) BUN 21 H (6-20) mg/dL Creatinine 1.2 (0.6-1.3) mg/dL Estimated GFR (MDRD) 61 L (>89) Glucose 126 H (74-104) mg/dL Lactic Acid 2.8 H (0.5-2.2) mmol/L Calcium 9.4 (8.5-10.3) mg/dL Total Bilirubin 11.6 H (0.2-1.0) mg/dL AST 40 (10-42) IU/L ALT 28 (10-60) IU/L Alkaline Phosphatase 169 H (42-121) IU/L Total Protein 7.6 (6.4-8.9) g/dL Albumin 3.5 (3.2-5.5) g/dL Globulin 4.1 (2.1-4.2) g/dL Albumin/Globulin Ratio 0.9 L (1.0-2.2) Lipase 28 (11-82) U/L Urine Color DARK YELLOW Urine Clarity CLEAR (CLEAR) Urine pH 6.0 (5.0-7.5) PH Ur Specific [place] 1.010 (1.002-1.030) Urine Protein NEGATIVE (NEGATIVE) mg/dL Urine Glucose (UA) NEGATIVE (NEGATIVE) mg/dL Urine Ketones NEGATIVE (NEGATIVE) mg/dL Urine Occult Blood NEGATIVE (NEGATIVE) Urine Nitrite NEGATIVE (NEGATIVE) Urine Bilirubin NEGATIVE (NEGATIVE) Urine Urobilinogen 2 H (NORMAL) E.U./dL Ur Leukocyte Esterase NEGATIVE (NEGATIVE) Ur Microscopic Review NOT INDICATED Urine Culture Comments NOT INDICATED Diagnostic Imaging Results Diagnostic Imaging Results: positive Final report reviewed and Read independently Exam Exam Vital Signs: Vital Signs x48h Temp Pulse Resp BP Pulse Ox 06/30/25 15:13 101 H 16 116/68 95 06/30/25 13:11 36.8 C 109 H 18 129/87 93 06/30/25 12:46 107 H 16 110/81 93 06/30/25 12:41 72 18 110/81 97 06/30/25 11:47 36.4 C L 103 H 20 127/89 97 Constitutional normal general appearance and distress noted (mild) HENMT normocephalic and head/scalp atraumatic Eyes conjunctivae normal Neck/C-Spine visual inspection normal Respiratory normal respiratory effort Cardiovascular normal heart rate noted and regular rhythm noted Gastrointestinal abdomen soft to palpation Exquisitely tender umbilical hernia which is still soft but non reducible. He has some surrounding induration and overlying skin changes (ecchymosis/erythema). Extremities normal to inspection Neurology GCS 15 Psychiatry cooperative and affect normal Skin skin color normal Conclusion/Plan Problem List (1) Incarcerated hernia: (2) Bowel obstruction: Qualifiers: Intestinal obstruction extent: unspecified extent Intestinal obstruction type: unspecified Qualified Code(s): K56.609 - Unspecified intestinal obstruction, unspecified as to partial versus complete obstruction (3) Alcoholic cirrhosis of liver with ascites: Plan 64-year-old male with known liver disease and pancytopenia who presented today after having his umbilical hernia incarcerated for approximately 24 hours. He was evaluated by myself in the ED with attempts to reduce his hernia which were unsuccessful after which I recommended urgent operation as the feeling was there was bowel in the hernia. Upon discussion with him and his sister they state that he has very high risk for surgery per prior discussions due to his liver disease (MELD-Na score of 26, Child class B) and they request the patient transferred to [facility] for management of this issue. The ED doctor attempted to coordinate transfer with [facility] but they stated that he was not appropriate for transfer to their hospital. After which I reevaluated the patient and he was then agreeable to surgery here at [facility]. CT scan done during attempted transfer which showed small bowel obstruction secondary to a periumbilical bowel and fat-containing hernia. Small volume free fluid within the hernia sac is concerning for strangulation. - Emergently to the OR for exploratory laparotomy w/ possible bowel resection - NPO w/ IVF - Pain and nausea control as needed - Encourage OOB/ambulation postop - Consult medicine for assistance with liver disease and ascites post op - Discussed with the patient and the ED provider Lab Results Lab results reviewed: Yes 06/30/25 12:07 06/30/25 12:07 Diagnostic Imaging Results Diagnostic Imaging Results: positive Final report reviewed and Read independently
--- NOTE | 2025-06-30 16:52 | ANESTHESIA PROCEDURE NOTE ---
Pre-Anesthesia VS, & Labs Diagnosis Surgical Diagnosis:: incarcerated umbilical hernia with bowel obstruction Procedure Procedure: Umbilical hernia reduction and repair vs bowel reconstruction Vitals Vital Signs: Temp Pulse Resp BP Pulse Ox 36.8 C 101 H 16 116/68 95 06/30/25 13:11 06/30/25 15:13 06/30/25 15:13 06/30/25 15:13 06/30/25 15:13 NPO NPO: >8 hours Lab Results Current Lab Results: Laboratory Tests 06/30/25 12:30: Lactic Acid 2.8 H 06/30/25 12:07: WBC 16.1 H, RBC 4.01 L, Hgb 14.4, Hct 43.3, MCV 108.0 H, MCH 35.9 H, MCHC 33.3, RDW 13.7, Plt Count 171, MPV 9.0, Neut # (Auto) 14.3 H, Lymph # (Auto) 0.6 L, [place] # (Auto) 1.0, Eos # (Auto) 0.0, Baso # (Auto) 0.1, Absolute Nucleated RBC 0.00, Nucleated RBC % 0.0, PT 17.1 H, INR 1.5 H, APTT 35.6 H, S odium 130 L, Potassium 4.4, Chloride 95 L, Carbon Dioxide 23, Anion Gap 12.0, B UN 21 H, Creatinine 1.2, Estimated GFR (MDRD) 61 L, Glucose 126 H, Calcium 9.4, Total Bilirubin 11.6 H, AST 40, ALT 28, Alkaline Phosphatase 169 H, Total Protein 7.6, Albumin 3.5, Globulin 4.1, Albumin/Globulin Ratio 0.9 L, Lipase 28 Lab results reviewed: Yes 06/30/25 12:07 06/30/25 12:07 Meds/Allgy Home Medications Ambulatory Orders Medication Instructions Recorded Confirmed apixaban 5 mg tablet 5 mg PO BID 06/10/24 5 nitroglycerin 0.4 mg sublingual 0.4 mg sublingual Q5M PRN chest 07/23/24 06/25/25 tablet pain #30 tabs docusate sodium 250 mg capsule 250 mg PO DAILY PRN 06/25/25 furosemide 40 mg tablet 40 mg PO QAM #90 tabs 06/25/25 metoprolol succinate 25 mg 25 mg PO BID 04/01/2506/25 tablet,extended release 24 hr pantoprazole 20 mg tablet,delayed 20 mg PO QDAY 06/25/25 release spironolactone 100 mg tablet 100 mg PO QAM 04/01/25 oxycodone 5 mg tablet 2.5 - 5 mg (0.5 - 1 x 5 mg) PO BID 06/12/25 06/25/25 PRN severe pain #60 tabs Allergies Allergies Allergy/AdvReac Type Severity Reaction Status Date / Time No Known Drug Allergies Allergy Verified 06/30/25 11:52 PFSH Active Problems All Active Problems (Updated 06/30/25 @ 14:30 by Gavin Chavarria MD) Bowel obstruction (Acute) Incarcerated hernia (Acute) Left inguinal hernia (Acute) 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) Moderate recurrent major depression (Acute) Fatigue (Acute) Umbilical hernia (Acute 06/07/23) Chronic insomnia (Acute 12/27/23) Restless leg syndrome (Acute 12/27/23) Healthcare maintenance (Acute) Pancytopenia (Acute) Dizziness (Acute) Anemia (Acute) Anemia (Acute) Advanced care planning/counseling discussion (Acute) Atrial fibrillation (Acute) Alcoholic cirrhosis of liver with ascites (Acute 06/06/23) CKD stage G3b/A1, GFR 30-44 and albumin creatinine ratio <30 mg/g (Acute) Thrombocytopenia (Acute) Glenohumeral arthritis (Acute) Anemia (Acute) Medical History Medical History (Updated 06/30/25 @ 14:30 by Gavin Chavarria MD) History of cardioversion Sleep apnea Inguinal hernia Right shoulder injury Chronic intermittent hypoxia with obstructive sleep apnea (12/27/23) Single acquired cyst of kidney (10/05/23) Periodic health assessment, general screening, adult (08/10/23) Depression with anxiety (06/20/23) 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) Inguinal hernia, right (05/08/23) Hyperglycemia (07/17/23) Contusion of abdominal wall, sequela (06/07/23) Chronic atrial fibrillation, unspecified (06/07/23) Surgical History Surgical History History of cardiac ablation for atrial fibrillation Family History Family History (Updated 11/04/24 @ 21:37 by DEBBIE Lu, MSN) Other Adopted Social History Social History (Updated 04/02/25 @ 13:00 by DEBBIE Lu, MSN) Smoking Status: Current some day smoker Number of Years Smoked: 40 Living arrangement: At home Marital Status: Living Condition: With family Level: Independent Do you feel safe in your home environment?: Yes History of physical, verbal, emotional, or financial abuse?: No ETOH Use: None ETOH - Additional Notes: Former history of daily, heavy alcohol use Substance Use: cannabis (any form) 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 Anesthesia Exam (Expanded) Exam General: Alert, Oriented x3, Cooperative and Mild distress Dental: Partials Upper and Partials Lower Mouth Openin Fingerbreadth Neck Mobility: Normal Thyromental Distance: 4-6 cm Respiratory: Lungs clear, Normal breath sounds and No respiratory distress Exam Exam Vital Signs: Vital Signs x48h Temp Pulse Resp BP Pulse Ox 06/30/25 15:13 101 H 16 116/68 95 06/30/25 13:11 36.8 C 109 H 18 129/87 93 06/30/25 12:46 107 H 16 110/81 93 06/30/25 12:41 72 18 110/81 97 06/30/25 11:47 36.4 C L 103 H 20 127/89 97 Plan Plan Anesthesia Type: General Consent for Procedure(s) Verified and Reviewed: Yes Code Status: Attempt Resuscitation ASA Classification ASA classification: 3-Severe systemic disease Is this case an emergency?: Yes
[2025-06-30] MEDS: HYDROmorphone 0.5 MG/0.5 ML SYRINGE IVP PRN (17:27)
[2025-06-30] MEDS ORDERED: fentaNYL 100 MCG/2 ML VIAL ONE ×2 (18:06→20:21)
[2025-06-30] MEDS ORDERED: MIDAZOLAM 2 MG/2 ML VIAL ONE (18:06)
[2025-06-30] MEDS ORDERED: PROPOFOL 200 MG/20 ML VIAL IVP ONE (18:07)
[2025-06-30] MEDS ORDERED: ROCURONIUM 50 MG/5 ML VIAL ONE (18:08)
[2025-06-30] MEDS ORDERED: BUPIVACAINE 0.25% PF 30 ML VIAL ONE (18:14)
[2025-06-30] MEDS ORDERED: PHENYLEPHRINE HCL 0.5 MG/5 ML AMPULE ONE (18:31)
[2025-06-30] MEDS ORDERED: DEXAMETHASONE 4 MG/ML VIAL ONE (18:42)
[2025-06-30] MEDS ORDERED: ONDANSETRON 4 MG/2 ML VIAL ONE (18:42)
[2025-06-30] MEDS ORDERED: HYDROmorphone 0.5 MG/0.5 ML SYRINGE IVP PRN (19:08)
[2025-06-30] MEDS ORDERED: NALOXONE 0.4 MG/ML VIAL IVP PRN (19:08)
[2025-06-30] MEDS ORDERED: ePHEDrine 50 MG/ML VIAL IVP PRN (19:08)
[2025-06-30] MEDS ORDERED: ONDANSETRON 4 MG/2 ML VIAL IVP PRN (19:08)
[2025-06-30] MEDS ORDERED: METOCLOPRAMIDE 10 MG/2 ML VIAL IVP PRN (19:08)
[2025-06-30] MEDS ORDERED: ATROPINE ABBOJECT 1 MG/10 ML SYRINGE IVP PRN (19:08)
[2025-06-30] MEDS ORDERED: MORPHINE 2 MG/ML CARPUJECT IVP PRN (19:08)
[2025-06-30] MEDS ORDERED: SUGAMMADEX 200 MG/2 ML VIAL IVP ONE (19:10)
[2025-06-30] MEDS ORDERED: METOPROLOL 5 MG/5 ML VIAL IVP ONE (19:19)
--- NOTE | 2025-06-30 20:04 | OPERATIVE REPORT ---
Operative Report General Procedure Data: Operation Date: 06/30/25 18:15 Proposed Procedures p Exploratory Laparotomy with possible bowel resection possible osteotomy(Not Applicable) - Patrice London MD Anesthesia Type General Case Staff Anesthesia Provider: Severino Horn Case Times Procedure Start: 06/30/25 18:47 Time out: 06/30/25 18:47 Implants MESH VENTRIO [id number] Pre-Op Diagnosis: Incarcerated umbilical hernia containing bowel Post Op Diagnosis: Incarcerated umbilical hernia containing bowel Procedure Note Intake, IV Amount (ml): 1,500 Estimated Blood Loss (ml): 25 Output, Urine Amount (ml): 300 Pathology: Hernia sac Indications: Incarcerated umbilical hernia containing bowel with overlying skin changes. Findings: 2.5cm umbilical hernia with incarcerated bowel and preperitoneal fat, after incising the hernia defect to loosen it we were able to assess the bowel which appeared viable. The bowel was run from the ligament of treitz to the ileocecal valve with no other sights of obstruction or adhesions and no further pathology. 11cm x 14cm Bard Ventrio ST hernia patch sutured inside the abdomen to lay flat against the anterior abdominal wall prior to fascial closure. Complications: None Other Other Information/Narrative: Patient was first correctly identified in the preoperative holding area and then wheeled to the operating room via stretcher. They were then made to lay on the operating room table in a supine fashion with both arms abducted 90 degrees. The patient underwent general anesthesia induction with endotracheal intubation which he tolerated well. An NG tube was placed by anesthesia and a Aldrich catheter was then placed by nursing staff. Bilateral sequential compression devices were placed and the patient received preoperative antibiotics. The abdomen was then prepped and draped in the usual surgical sterile fashion and a WHO timeout was called to which all were in agreement. An incision was then made on the inferior aspect of the bulge that made up the incarcerated umbilical hernia and carried inferiorly. This was then carried down to the fascia just below the abdominal wall defect using Bovie el ectrocautery. The fascia was then incised and a finger was placed at the bowel to protect it as the hernia defect was opened. We then let the bowel fall back into the abdomen as we completely excised the hernia sac and sent it off for specimen. A medium Brent wound protector was then placed and the bowel was then eviscerated and run from the ligament of Treitz to the ileocecal valve. While doing so a small 5 cm area that appeared injected but viable was identified as the probable site of hernia incarceration. We were able to milk contents through the area with ease and the bowel appeared healthy with good blood supply. Due to this the decision was made to not excise any bowel. The abdomen was then irrigated and hemostasis was assured. We then again eviscerated the bowel and ran from the ligament of Treitz to ileocecal valve again confirming viable bowel without signs of further obstruction or other pathology. We then turned our attention to hernia repair. The bowel was then returned to the abdomen and an 11 cm x [address] hernia patch was then opened and brought into the surgical field. 2-0 Vicryl's were then used to place a stitch through the mesh at the inferior, superior, and bilaterally at the edges of the mesh with the sutures tied in place. We then placed the mesh into the abdomen and opened it so that the covered side was towards the bowel. An Endo Close device was then used through the fascia to grasp the previously tied sutures to the mesh inferiorly, superiorly and bilaterally to stretch the mesh to the full size and affix the edges to the fascia. At this point it was noted that the mesh was flat against the anterior abdominal wall. 2-0 Vicryl sutures were then placed in between each of the previous place sutures through the fascia and the anterior leaflet of the mesh to avoid injury to the bowel. At this point the mesh was completely flat against the anterior abdominal wall without signs of buckling or folding. Using a #1 PDS suture running inferiorly and superiorly the fascia was then closed over top of the mesh and tied together. The subcutaneous tissues were then reapproximated using 2-0 Vicryl sutures and then skin latasha were used to close the skin. A Mepilex dressing was then placed followed by an abdominal binder. The patient was then awoken from anesthesia in a good condition and transferred to the recovery area. All sponge, needle and instrument counts were confirmed correct prior to the patient being awoken from anesthesia
[2025-06-30] MEDS: LACTATED RINGERS 1,000 ML IV SCH ×2 (20:22→23:04)
[2025-06-30] MEDS: fentaNYL 100 MCG/2 ML VIAL IVP PRN (20:22)
--- NOTE | 2025-06-30 21:05 | ANESTHESIA POST OP EVALUATION ---
Anesthesia Post Eval Post Anesthesia Eval Vitals: Last Vital Signs Temp 36.9 C 06/30/25 20:38 Pulse 117 H 06/30/25 20:38 Resp 20 06/30/25 20:38 BP 161/99 H 06/30/25 20:38 Pulse Ox 96 06/30/25 20:38 O2 Flow Rate 2 06/30/25 18:00 CV Function Including HR & BP: Stable Pain Control: Satisfactory Nausea & Vomiting: Negative Mental Status: Baseline Respiratory Status: Airway Patent Hydration Status: Satisfactory Anesthesia Complications: None
[2025-06-30] MEDS: ceFAZolin (2G) 2 GM in SODIUM CHLORIDE 0.9% MINIBAG 100 ML IV ONE (23:03)
[2025-06-30] MEDS: ALBUMIN 25% 12.5 GM/50 ML VIAL IV STA (23:03)
[2025-06-30] MEDS: SODIUM CHLORIDE FLUSH 0.9% 10 ML SYRINGE IVP PRN (23:04)
[2025-06-30] MEDS: SODIUM CHLORIDE FLUSH 0.9% 10 ML SYRINGE IVP SCH (23:05)
--- NOTE | 2025-07-01 07:10 | PROVIDER PROGRESS NOTE ---
Subjective General Procedure Date: 06/30/25 Post Op Days: 1 Procedure Performed: Open ventral hernia repair with mesh placement Other Other Information/Narrative: Overall feeling well this morning, having some abdominal pain but controlled, pulled his NGT overnight, denies any nausea or bloating, not yet OOB/ambulating or passing flatus. Wound Assessment Wound/Incisions: positive Dressing dry and intact Review of Systems Status of ROS: 10 or more systems reviewed and unremarkable except as noted in h istory and below Exam Exam Vital Signs: Vital Signs x48h Temp Pulse Resp BP Pulse Ox 07/01/25 02:48 107 H 20 102/69 95 07/01/25 01:48 102 H 20 125/72 95 07/01/25 00:59 94 07/01/25 00:41 36.4 C L 105 H 20 106/71 90 L 06/30/25 23:48 36.5 C 106 H 20 125/81 99 Constitutional normal general appearance and no apparent distress HENMT normocephalic and head/scalp atraumatic Eyes conjunctivae normal Neck/C-Spine visual inspection normal Respiratory normal respiratory effort Cardiovascular normal heart rate noted and regular rhythm noted Gastrointestinal abdomen soft to palpation Wearing abdominal binder, dressing in place, abdomen soft and appropriately TTP. Extremities normal to inspection Neurology GCS 15 Psychiatry cooperative and affect normal Skin skin color normal Impression/Plan Problem List (1) Incarcerated hernia: (2) Bowel obstruction: Qualifiers: Intestinal obstruction extent: unspecified extent Intestinal obstruction type: unspecified Qualified Code(s): K56.609 - Unspecified intestinal obstruction, unspecified as to partial versus complete obstruction (3) Alcoholic cirrhosis of liver with ascites: Plan 64-year-old male with known liver disease and pancytopenia who presented today after having his umbilical hernia incarcerated for approximately 24 hours. He was evaluated by myself in the ED with attempts to reduce his hernia which were unsuccessful after which I recommended urgent operation as the feeling was there was bowel in the hernia. Upon discussion with him and his sister they state that he has very high risk for surgery per prior discussions due to his liver disease (MELD-Na score of 26, Child class B) and they request the patient transferred to [facility] for management of this issue. The ED doctor attempted to coordinate transfer with [facility] but they stated that he was not appropriate for transfer to their hospital. After which I reevaluated the patient and he was then agreeable to surgery here at [facility]. 06/30: Open ventral hernia repair with mesh placement; discovered viable bowel in the hernia which was reduced so proceeded with ventral hernia repair with 11cm x 14cm mesh. - NPO w/ IVF, start sips and chips - Pain and nausea control as needed - Encourage OOB/ambulation - Appreciate medicine input - Await bowel function
[2025-07-01 07:52] LABS: HCT - HEMATOCRIT 35.9 % (42.0-52.0); HGB - HEMOGLOBIN 11.9 g/dL (14.0-18.0); MEAN PLATELET VOLUME 8.9 fL (7.4-11.4); NRBC ABSOLUTE COUNT (AUTO) 0.00 x10^3/uL; NUCLEATED RED BLOOD CELLS AUTO 0.0 /100WBC; PLT - PLATELET COUNT 123 10^3/uL (130-450); RED CELL DISTRIBUTION WIDTH 14.0 % (12.0-15.0)
[2025-07-01 08:00] LABS: INR 1.7 (0.8-1.2); PT - PROTHROMBIN TIME 19.0 secs (9.9-12.6)
[2025-07-01 08:04] LABS: BUN - BLOOD UREA NITROGEN 25.0 mg/dL (6-20); CARBON DIOXIDE - CO2 26.0 mmol/L (21-32); CREATININE 1.1 mg/dL (0.6-1.3); GFR - MDRD 68.0 (>89); PHOSPHORUS 4.4 mg/dL (2.5-5.0)
--- NOTE | 2025-07-01 08:57 | CONSULTATION NOTE ---
Referring Provider Name of Referring Provider:: Patrice London Consult Date: 07/01/25 Chief Complaint Chief Complaint Chief Complaint: Abdominal pain, nausea and vomiting History of Present Illness Admitted From Admitted From:: ED History Obtained From Records Reviewed: [facility] History obtained from: EMR, Patient, Dr. London History of Present Illness HPI Comment/Other: This is a 64-year-old male with a past medical history of umbilical hernia, alcohol-related cirrhosis, pancytopenia, CKD presenting initially with multiple days of nonreducible hernia. He was having some nausea, vomiting, obstipation prior to coming in. Otherwise did not appear septic. He was taken to the OR with general surgery on 06/30 for reduction. Was found to be incarcerated. He has not yet had return of bowel function. I was approached by Dr. London for consideration of consultation given this patient's medical complexity. Regarding his cirrhosis, he is has a diagnosis for at least 2 years. He quit drinking around the time of his initial diagnosis. He had ascites on initial diagnosis, but has not dealt with that since then. He says he has had an EGD in the past which did not reveal any varices. He has never had gastrointestinal bleeding. He has been working to get in with hepatology. He has been trying to get in at the [facility]. He tells me "they keep saying they cannot take my referral". He has not tried anywhere else yet. He follows with palliative care here. Since his surgery, he has not had any return of bowel function. He is not passing gas. He is not nauseous right now. Denies any fevers or chills. His pain from his surgery is worse when he moves, but is reasonably managed at rest. He has been on O2 since procedure, currently satting high 90s on 1 to 2 L. Meds/Allgy Home Medications Ambulatory Orders Medication Instructions Recorded Confirmed apixaban 5 mg tablet 5 mg PO BID 06/10/24 5 nitroglycerin 0.4 mg sublingual 0.4 mg sublingual Q5M PRN chest 07/23/24 06/25/25 tablet pain #30 tabs docusate sodium 250 mg capsule 250 mg PO DAILY PRN 06/25/25 furosemide 40 mg tablet 40 mg PO QAM #90 tabs 06/25/25 metoprolol succinate 25 mg 25 mg PO BID 04/01/2506/25 tablet,extended release 24 hr pantoprazole 20 mg tablet,delayed 20 mg PO QDAY 06/25/25 release spironolactone 100 mg tablet 100 mg PO QAM 04/01/25 oxycodone 5 mg tablet 2.5 - 5 mg (0.5 - 1 x 5 mg) PO BID 06/12/25 06/25/25 PRN severe pain #60 tabs Allergies Allergies Allergy/AdvReac Type Severity Reaction Status Date / Time No Known Drug Allergies Allergy Verified 06/30/25 11:52 PFSH Active Problems All Active Problems (Updated 07/01/25 @ 13:13 by Tremaine Hobson DO) Acute hypoxemic respiratory failure (Acute) Bowel obstruction (Acute) Incarcerated hernia (Acute) Left inguinal hernia (Acute) 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) Moderate recurrent major depression (Acute) Fatigue (Acute) Umbilical hernia (Acute 06/07/23) Chronic insomnia (Acute 12/27/23) Restless leg syndrome (Acute 12/27/23) Healthcare maintenance (Acute) Pancytopenia (Acute) Dizziness (Acute) Anemia (Acute) Anemia (Acute) Advanced care planning/counseling discussion (Acute) Atrial fibrillation (Acute) Alcoholic cirrhosis of liver with ascites (Acute 06/06/23) CKD stage G3b/A1, GFR 30-44 and albumin creatinine ratio <30 mg/g (Acute) Thrombocytopenia (Acute) Glenohumeral arthritis (Acute) Anemia (Acute) Medical History Medical History (Updated 07/01/25 @ 13:13 by Tremaine Hobson DO) History of cardioversion Sleep apnea Inguinal hernia Right shoulder injury Chronic intermittent hypoxia with obstructive sleep apnea (12/27/23) Single acquired cyst of kidney (10/05/23) Periodic health assessment, general screening, adult (08/10/23) Depression with anxiety (06/20/23) 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) Inguinal hernia, right (05/08/23) Hyperglycemia (07/17/23) Contusion of abdominal wall, sequela (06/07/23) Chronic atrial fibrillation, unspecified (11/01/23) Surgical History Surgical History History of cardiac ablation for atrial fibrillation Family History Family History (Updated 11/04/24 @ 21:37 by DEBBIE Lu, MSN) Other Adopted Social History Social History (Updated 04/02/25 @ 13:00 by DEBBIE Lu, MSN) Smoking Status: Current some day smoker Number of Years Smoked: 40 Living arrangement: At home Marital Status: Living Condition: With family Level: Independent Do you feel safe in your home environment?: Yes History of physical, verbal, emotional, or financial abuse?: No ETOH Use: None ETOH - Additional Notes: Former history of daily, heavy alcohol use Substance Use: cannabis (any form) 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 Results Lab Results Lab results reviewed: Yes 07/01/25 07:40 07/01/25 07:40 Other Lab Results: Lab Results x24hrs 07/01/25 06/30/25 Range/Units 07:40 14:22 WBC 14.7 H (4.8-10.8) x10^3/uL RBC 3.27 L (4.70-6.10) 10^6/uL Hgb 11.9 L (14.0-18.0) g/dL Hct 35.9 L (42.0-52.0) % MCV 109.8 H (80.0-94.0) fL MCH 36.4 H (27.0-31.0) pg MCHC 33.1 (32.0-36.0) g/dL RDW 14.0 (12.0-15.0) % Plt Count 123 L (130-450) 10^3/uL MPV 8.9 (7.4-11.4) fL Neut # (Auto) 13.0 H (1.5-6.6) 10^3/uL Lymph # (Auto) 0.4 L (1.5-3.5) 10^3/uL [place] # (Auto) 1.2 H (0.0-1.0) 10^3/uL Eos # (Auto) 0.0 (0.0-0.7) 10^3/uL Baso # (Auto) 0.0 (0.0-0.1) 10^3/uL Absolute Nucleated RBC 0.00 x10^3/uL Nucleated RBC % 0.0 /100WBC PT 19.0 H (9.9-12.6) secs INR 1.7 H (0.8-1.2) Sodium 132 L (135-145) mmol/L Potassium 4.4 (3.5-4.5) mmol/L Chloride 100 L (101-111) mmol/L Carbon Dioxide 26 (21-32) mmol/L Anion Gap 6.0 (6-13) BUN 25 H (6-20) mg/dL Creatinine 1.1 (0.6-1.3) mg/dL Estimated GFR (MDRD) 68 L (>89) Glucose 130 H (74-104) mg/dL Calcium 8.5 (8.5-10.3) mg/dL Phosphorus 4.4 (2.5-5.0) mg/dL Magnesium 1.7 (1.7-2.3) mg/dL Urine Color DARK YELLOW Urine Clarity CLEAR (CLEAR) Urine pH 6.0 (5.0-7.5) PH Ur Specific [place] 1.010 (1.002-1.030) Urine Protein NEGATIVE (NEGATIVE) mg/dL Urine Glucose (UA) NEGATIVE (NEGATIVE) mg/dL Urine Ketones NEGATIVE (NEGATIVE) mg/dL Urine Occult Blood NEGATIVE (NEGATIVE) Urine Nitrite NEGATIVE (NEGATIVE) Urine Bilirubin NEGATIVE (NEGATIVE) Urine Urobilinogen 2 H (NORMAL) E.U./dL Ur Leukocyte Esterase NEGATIVE (NEGATIVE) Ur Microscopic Review NOT INDICATED Urine Culture Comments NOT INDICATED Exam Exam Vital Signs: Vital Signs x48h Temp Pulse Resp BP Pulse Ox 07/01/25 12:11 36.5 C 107 H 20 123/85 98 07/01/25 07:52 36.5 C 104 H 20 132/80 H 97 07/01/25 06:48 36.6 C 81 18 100/62 97 GEN: No acute distress, lying in bed HEENT: NC/AT, normal appearance of external ears and nose. Hearing baseline. Cardiac: Regular rate and rhythm, no murmurs. Palpable distal pulses Pulm: Fine rales throughout the lung nguyen, most significant in the left lung field. Normal effort on 2 L O2, not using accessory muscles. Abdomen: Abdominal binder in place, dressing CDI. Abdomen is distended, not tense. Tender to palpation. Extremities: Moves all 4 extremities equally. Normal tone. Neuro: Face symmetric, CN II through XII intact grossly. No focal neurologic deficits. No tremor. Gait exam deferred Psych: Mood euthymic with congruent affect. Reasonable historian. Conclusion/Plan Problem List (1) Incarcerated hernia: Plan: 64-year-old male with past medical history as above presenting with an incarcerated hernia, s/p exploratory laparotomy with general surgery on 06/30. Patient did not need any bowel resection. His pain is reasonably well-managed at this time. Has persistent ileus as of 07/01. - N.p.o. pending return of bowel function - Adding IV Tylenol to limit his narcotic exposure - Avoid NSAID ISO his cirrhosis - Abdominal binder in place - Mobilize as able - Rest of plan per primary team (2) Bowel obstruction: Plan: Resolved postoperatively. Resultant ileus as above. Qualifiers: Intestinal obstruction extent: unspecified extent Intestinal obstruction type: unspecified Qualified Code(s): K56.609 - Unspecified intestinal obstruction, unspecified as to partial versus complete obstruction (3) Alcoholic cirrhosis of liver with ascites: Plan: MELD 3.0 24, 89.5% 90-day survival Child-Talley class C (slight ascites, no dante encephalopathy) Patient with a longstanding history of alcohol related cirrhosis. Originally diagnosed around 2022. He follows with palliative care locally. He has not been able to get in with hepatology though he is attempted. He quit drinking around the time of his diagnosis. He denies any significant ascites since his diagnosis. He is on diuretics appropriately in the community. No history of esophageal varices. No history of HE Mild thrombocytopenia at 123. INR 1.7 - Monitor CMP, CBC, coags daily - Resume furosemide and Aldactone likely tomorrow - Would start feeding soon, consider PPN if no return of bowel function by 07/02 - Consider lactulose if encephalopathic - Given his age, he may benefit from liver transplant if he can get in with a specialist (4) Acute hypoxemic respiratory failure: Plan: Patient normally on room air. He has been on 2 L since his procedure. His fluid balance is +2600 mL. He has fine rales throughout his lungs. - Continues to be n.p.o., will benefit from ongoing fluids - Chest XR, will consider early resumption of diuretics if significant fluid overload - Strict I/O - He is auto diuresing appropriately - Wean O2 as tolerated, goal sat > 92% - Pulmonary toileting (5) Atrial fibrillation: Plan: Longstanding history of atrial fibrillation. He is on a DOAC and metoprolol prior to this hospitalization. He has not been resumed on anticoagulation at this time. His rates have actually been elevated since his surgery, likely complicated by his pain. Rates 80-110. [id number] is 0 without any history of CHF, vascular disease, diabetes, hypertension or prior stroke. - Consider withholding anticoagulation indefinitely - Will resume his beta-polo today Qualifiers: Atrial fibrillation type: persistent (not longstanding) Qualified Code(s): I48.19 - Other persistent atrial fibrillation Lab Results Lab results reviewed: Yes 07/01/25 07:40 07/01/25 07:40
[2025-07-01] MEDS: D5.45NS W/20 MEQ KCL 1,000 ML IV SCH (10:49)
[2025-07-01] MEDS: ONDANSETRON 4 MG/2 ML VIAL IVP PRN (11:00)
--- OUTSIDE RECORDS SUMMARY | 2025-07-01 12:21 | EXTERNAL MEDICAL SUMMARY RPT | Continuity of Care Document ---
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 [facility] 2025-04-08 12:51 Major depressive disorder, recu rrent, moderate [facility] 2025-04-08 12:51 Unilateral inguinal hernia, without obstruction or gangrene, not specified as recurrent [facility] 2025-04-08 12:51 Umbilical hernia without obstru ction or gangrene [facility] 2025-04-08 12:51 Alcoholic cirrhosis of liver [facility] 2025-04-08 12:51 Primary osteoarthritis, unspeci fied shoulder [facility] 2025-04-08 12:51 Chronic kidney disease, stage 3 b [facility] 2025-04-08 12:51 Encounter for palliative care [facility] 2025-05-01 07:38 Other [facility] 2025-05-01 07:38 Anemia, unspecified [facility] 2025-05-01 08:56 Other pancytopenia [facility] 2025-05-01 09:36 Other [facility] 2025-05-01 09:36 Anemia, unspecified [facility] 2025-05-01 09:37 Other [facility] 2025-05-01 09:37 Anemia, unspecified [facility] 2025-05-01 09:45 Other [facility] 2025-05-01 09:45 Anemia, unspecified [facility] 2025-05-01 10:36 Other [facility] 2025-05-01 10:36 Anemia, unspecified [facility] 2025-05-01 12:16 Other [facility] 2025-05-02 00:04 Other [facility] 2025-05-27 13:37 Other [facility] 2025-05-27 13:37 Major depressive disorder, recu rrent, moderate [facility] 2025-05-27 13:37 Unilateral inguinal hernia, without obstruction or gangrene, not specified as recurrent [facility] 2025-05-27 13:37 Umbilical hernia without obstru ction or gangrene [facility] 2025-05-27 13:37 Alcoholic cirrhosis of liver [facility] 2025-05-27 13:37 Primary osteoarthritis, unspeci fied shoulder [facility] 2025-05-27 13:37 Encounter for palliative care [facility] 2025-06-04 12:11 Other pancytopenia [facility] 2025-06-04 12:11 Anemia, unspecified [facility] 2025-06-18 13:21 Encounter for palliative care [facility] 2025-06-23 11:53 Other pancytopenia [facility] 2025-06-23 11:53 Anemia, unspecified [facility] 2025-06-25 08:52 Other [facility] 2025-06-25 08:52 Anemia, unspecified [facility] 2025-06-25 13:33 Other [facility] 2025-06-25 13:33 Anemia, unspecified [facility] 2025-06-25 13:51 Other [facility] 2025-06-25 13:51 Anemia, unspecified [facility] 2025-06-25 14:37 Other [facility] 2025-06-25 14:37 Anemia, unspecified [facility] 2025-06-25 15:11 Other pancytopenia [facility] 2025-06-25 15:11 Anemia, unspecified [facility] 2025-06-25 15:15 Other pancytopenia [facility] 2025-06-25 15:15 Anemia, unspecified [facility] 2025-06-27 08:16 Other pancytopenia [facility] 2025-06-30 16:52 Unspecified abdomina l hernia with obstruction, [facility] 2025-06-30 16:52 Unspecified intestin al obstruction, unspecified as to partial versus complete [facility] 2025-06-30 18:05 Unspecified abdomina l hernia with obstruction, without gangrene [facility] 2025-06-30 18:05 Unspecified intestin al obstruction, unspecified as to partial versus complete obstruction [facility] 2025-06-30 18:30 Unspecified abdomina l hernia with obstruction, without gangrene [facility] 2025-06-30 18:30 Unspecified intestin al obstruction, unspecified as to partial versus complete [facility] 18:30 Alcoholic cirrhosis of liver [facility] 2025-06-30 18:33 Unspecified abdomina l hernia with obstruction, without gangrene [facility] 2025-06-30 18:33 Unspecified intestin al obstruction, unspecified as to partial versus complete obstruction [facility]25-[facility] 18:33 Alcoholic cirrhosis of liver [facility] 2025-06-30 19:05 Unspecified abdomina l hernia with obstruction, without gangrene [facility]25-[facility] 19:05 Unspecified intestin al obstruction, unspecified as to partial versus complete obstruction [facility] 2025-06-30 19:05 Alcoholic cirrhosis of liver [facility] 2025-06-30 20:25 Unspecified abdomina l hernia with obstruction, without gangrene [facility]25-[facility] 20:25 Unspecified intestin al obstruction, unspecified as to partial versus complete obstruction [facility] 2025-06-30 20:25 Alcoholic cirrhosis of liver [facility] [employer] 2025-06-30 23:29 Unspecified abdomina l hernia with obstruction, without gangrene [facility] 2025-06-30 23:29 Unspecified intestin al obstruction, unspecified as to partial versus complete obstruction [facility] 2025-06-30 23:29 Alcoholic cirrhosis of liver [facility] 2025-07-01 09:14 Unspecified abdomina l hernia with obstruction, without gangrene [employer] [facility] 2025-07-01 09:14 Unspecified intestin al obstruction, unspecified as to partial versus complete obstruction [facility] 2025-07-01 09:14 Alcoholic cirrhosis of liver [facility] [employer] [facility] 2025-07-01 09:28 Unspecified abdomina l hernia with obstruction, without gangrene [facility] 2025-07-01 09:28 Unspecified intestin al obstruction, unspecified as to partial versus complete obstruction [facility] 2025-07-01 09:28 Alcoholic cirrhosis of liver [facility] Results/Labs test date facility value unit notes Result panel 1 NUCLEATED RED BLOOD CELLS AUTO 2025-05-01 09:05 [facility] 0.0 /100wbc (missing) NRBC ABSOLUTE COUNT (AUTO) 2025-05-01 09:05 [facility] 0.00 x10 3/ul (missing) BASOPHILS # (AUTO) 2025-05-01 09:05 [facility] 0.1 10 3/ul (missing) EOSINOPHILS # (AUTO) 2025-05-01 09:05 [facility] 0.3 10 3/ul (missing) MONOCYTES # (AUTO) 2025-05-01 09:05 [facility] 0.5 10 3/ul (missing) ALBUMIN/GLOBULIN RATIO 2025-05-01 09:05 [facility] 0.8 (missing) (missing) LYMPHOCYTES # (AUTO) 2025-05-01 09:05 [facility] 0.8 10 3/ul (missing) CREATININE 2025-05-01 09:05 [facility] 0.9 mg/dl As of February 2023 testing method has changed, this may include reference ranges. MEAN CORPUSCULAR VOLUME 2025-05-01 09:05 [facility] 104.9 fl (missing) GLUCOSE 2025-05-01 09:05 [facility] 112 mg/dl As of February 2023 testing method has changed, this may include reference ranges. BUN - BLOOD UREA NITROGEN 2025-05-01 09:05 [facility] 12 mg/dl As of February 2023 testing method has changed, this may include reference ranges. HGB - HEMOGLOBIN 2025-05-01 09:05 [facility] 12.2 g/dl (missing) PLT - PLATELET COUNT 2025-05-01 09:05 [facility] 129 10 3/ul (missing) SODIUM 2025-05-01 09:05 [facility] 133 mmol/l No RED CELL DISTRIBUTION WIDTH 2025-05-01 09:05 [facility] 14.9 % (missing) ALKALINE PHOSPHATASE 2025-05-01 09:05 [facility] 168 iu/l As of February 2023 testing method has changed, this may include reference ranges. TRANSFERRIN 2025-05-01 09:05 [facility] 202 mg/dl As of February 2023 testing method has changed, this may include reference ranges. % IRON SATURATION 2025-05-01 09:05 [facility] 28 % (missing) TOTAL IRON BINDING CAPACITY 2025-05-01 09:05 [facility] 283 ug/dl (missing) CARBON DIOXIDE - CO2 2025-05-01 09:05 [facility] 29 mmol/l As of February 2023 testing method has changed, this may include reference ranges. ALBUMIN 2025-05-01 09:05 [facility] 3.2 g/dl As of February 2023 testing method has changed, this may include reference ranges. NEUTROPHILS # (AUTO) 2025-05-01 09:05 [facility] 3.4 10 3/ul (missing) RED BLOOD COUNT 2025-05-01 09:05 [facility] 3.45 10 6/ul (missing) POTASSIUM 2025-05-01 09:05 [facility] 3.5 mmol/l As of February 2023 testing method has changed, this may include reference ranges. ALT ALANINE AMINOTRANSFERASE 2025-05-01 09:05 [facility] 33 iu/l As of February 2023 testing method has changed, this may include reference ranges. MEAN CORPUSCULAR HGB CONC 2025-05-01 09:05 [facility] 33.7 g/dl (missing) MEAN CORPUSCULAR HEMOGLOBIN 2025-05-01 09:05 [facility] 35.4 pg (missing) HCT - HEMATOCRIT 2025-05-01 09:05 [facility] 36.2 % (missing) GLOBULIN 2025-05-01 09:05 [facility] 4.0 g/dl (missing) BILIRUBIN,TOTAL 2025-05-01 09:05 [facility] 4.1 mg/dl As of February 2023 testing method has changed, this may include reference ranges. ANION GAP 2025-05-01 09:05 [facility] 5.0 (missing) (missing) WHITE BLOOD COUNT 2025-05-01 09:05 [facility] 5.0 x10 3/ul (missing) AST ASPARTATE AMINOTRANSFERASE 2025-05-01 09:05 [facility] 53 iu/l As of February 2023 testing method has changed, this may include reference ranges. TOTAL PROTEIN 2025-05-01 09:05 [facility] 7.2 g/dl As of February 2023 testing method has changed, this may include reference ranges. IRON 2025-05-01 09:05 [facility] 78 ug/dl As of February 2023 testing method has changed, this may include reference ranges. FERRITIN 2025-05-01 09:05 [facility] 79.1 ng/ml (missing) CALCIUM 2025-05-01 09:05 [facility] 8.9 mg/dl As of February 2023 testing method has changed, this may include reference ranges. GFR - MDRD 2025-05-01 09:05 [facility] 86 (missing) The IDMS-traceable MDRD Study Equation [...] October 2011. MEAN PLATELET VOLUME 2025-05-01 09:05 [facility] 9.1 fl (missing) CHLORIDE 2025-05-01 09:05 [facility] 99 mmol/l As of February 2023 testing method has changed, this may include reference ranges. Result panel 2 NUCLEATED RED BLOOD CELLS AUTO 2025-06-25 13:48 [facility] 0.0 /100wbc (missing) NRBC ABSOLUTE COUNT (AUTO) 2025-06-25 13:48 [facility] 0.00 x10 3/ul (missing) BASOPHILS # (AUTO) 2025-06-25 13:48 [facility] 0.1 10 3/ul (missing) EOSINOPHILS # (AUTO) 2025-06-25 13:48 [facility] 0.1 10 3/ul (missing) MONOCYTES # (AUTO) 2025-06-25 13:48 [facility] 0.4 10 3/ul (missing) LYMPHOCYTES # (AUTO) 2025-06-25 13:48 [facility] 0.7 10 3/ul (missing) CRP - C-REACTIVE PROTEIN 2025-06-25 13:48 [facility] 0.7 mg/dl As of February 2023 test ing method has changed, this may include reference ranges. ALBUMIN/GLOBULIN RATIO 2025-06-25 13:48 [facility] 0.8 (missing) (missing) CREATININE 2025-06-25 13:48 [facility] 1.0 mg/dl As of February 2023 test ing method has changed, this may include reference ranges. MEAN CORPUSCULAR VOLUME 2025-06-25 13:48 [facility] 109.0 fl (missing) HGB - HEMOGLOBIN 2025-06-25 13:48 [facility] 11.9 g/dl (missing) FERRITIN 2025-06-25 13:48 [facility] 116.3 ng/ml (missing) PLT - PLATELET COUNT 2025-06-25 13:48 [facility] 119 10 3/ul (missing) IRON 2025-06-25 13:48 [facility] 119 ug/dl As of February 2023 test ing method has changed, this may include reference ranges. SODIUM 2025-06-25 13:48 [employer] [facility] 131 mmol/l Unknown RED CELL DISTRIBUTION WIDTH 2025-06-25 13:48 [facility] 14.1 % (missing) ALKALINE PHOSPHATASE 2025-06-25 13:48 [facility] 162 iu/l As of February 2023 test ing method has changed, this may include reference ranges. GLUCOSE 2025-06-25 13:48 [facility] 179 mg/dl As of February 2023 test ing method has changed, this may include reference ranges. BUN - BLOOD UREA NITROGEN 2025-06-25 13:48 [facility] 18 mg/dl As of February 2023 test ing method has changed, this may include reference ranges. TRANSFERRIN 2025-06-25 13:48 [facility] 226 mg/dl As of February 2023 test ing method has changed, this may include reference ranges. CARBON DIOXIDE - CO2 2025-06-25 13:48 [facility] 28 mmol/l As of February 2023 test ing method has changed, this may include reference ranges. ALBUMIN 2025-06-25 13:48 [facility] 3.1 g/dl As of February 2023 test ing method has changed, this may include reference ranges. RED BLOOD COUNT 2025-06-25 13:48 [facility] 3.21 10 6/ul (missing) AFP SERUM TUMOR MARKER 2025-06-25 13:48 [facility] 3.4 ng/ml [employer] Electrochemiluminescence Immunoassay (ECLIA) Values obtained with different assay methods or kits cannot be used interchangeably. Results cannot be interpreted as absolute evidence of the presence or absence of malignant disease. This test is not interpretable in females. Performed at: [facility] [address], [address], [place], [place] [id number] Senior Web Developer: Bradly Mcclain MD, Phone: [phone] GLOBULIN 2025-06-25 13:48 [facility] 3.7 g/dl (missing) TOTAL IRON BINDING CAPACITY 2025-06-25 13:48 [facility] 316 ug/dl (missing) ALT ALANINE AMINOTRANSFERASE 2025-06-25 13:48 [facility] 32 iu/l As of February 2023 test ing method has changed, this may include reference ranges. MEAN CORPUSCULAR HGB CONC 2025-06-25 13:48 [facility] 34.0 g/dl (missing) HCT - HEMATOCRIT 2025-06-25 13:48 [facility] 35.0 % (missing) MEAN CORPUSCULAR HEMOGLOBIN 2025-06-25 13:48 [facility] 37.1 pg (missing) % IRON SATURATION 2025-06-25 13:48 [facility] 38 % (missing) POTASSIUM 2025-06-25 13:48 [facility] 4.3 mmol/l As of February 2023 test ing method has changed, this may include reference ranges. NEUTROPHILS # (AUTO) 2025-06-25 13:48 [facility] 4.9 10 3/ul (missing) BILIRUBIN,TOTAL 2025-06-25 13:48 [facility] 5.3 mg/dl As of February 2023 test ing method has changed, this may include reference ranges. AST ASPARTATE AMINOTRANSFERASE 2025-06-25 13:48 [facility] 54 iu/l As of February 2023 test ing method has changed, this may include reference ranges. ANION GAP 2025-06-25 13:48 [facility] 6.0 (missing) (missing) WHITE BLOOD COUNT 2025-06-25 13:48 [facility] 6.1 x10 3/ul (missing) TOTAL PROTEIN 2025-06-25 13:48 [facility] 6.8 g/dl As of February 2023 test ing method has changed, this may include reference ranges. GFR - MDRD 2025-06-25 13:48 [facility] 76 (missing) The IDMS-traceable M DRD Study [...] last updated October 2011. CALCIUM 2025-06-25 13:48 [facility] 8.6 mg/dl As of February 2023 test ing method has changed, this may include reference ranges. MEAN PLATELET VOLUME 2025-06-25 13:48 [facility] 9.7 fl (missing) CHLORIDE 2025-06-25 13:48 [facility] 97 mmol/l As of February 2023 test ing method has changed, this may include reference ranges. Result panel 3 NUCLEATED RED BLOOD CELLS AUTO 2025-06-30 12:07 [facility] 0.0 /100wbc (missing) EOSINOPHILS # (AUTO) 2025-06-30 12:07 [facility] 0.0 10 3/ul (missing) NRBC ABSOLUTE COUNT (AUTO) 2025-06-30 12:07 [facility] 0.00 x10 3/ul (missing) BASOPHILS # (AUTO) 2025-06-30 12:07 [facility] 0.1 10 3/ul (missing) LYMPHOCYTES # (AUTO) 2025-06-30 12:07 [facility] 0.6 10 3/ul (missing) ALBUMIN/GLOBULIN RATIO 2025-06-30 12:07 [facility] 0.9 (missing) (missing) MONOCYTES # (AUTO) 2025-06-30 12:07 [facility] 1.0 10 3/ul (missing) CREATININE 2025-06-30 12:07 [facility] 1.2 mg/dl Moderately Icteric: Results may be affected. As of February 2023 testing method has changed, this may include reference ranges. INR 2025-06-30 12:07 [facility] 1.5 (missing) Oral Anticoagulant Indication INR range Venous Thrombosis, P.E. 2.0 - 3.0 Mechanical Valve 2.5 - 3.5 MEAN CORPUSCULAR VOLUME 2025-06-30 12:07 [facility] 108.0 fl (missing) BILIRUBIN,TOTAL 2025-06-30 12:07 [facility] 11.6 mg/dl As of February 2023 testing method has changed, this may include reference ranges. ANION GAP 2025-06-30 12:07 [facility] 12.0 (missing) (missing) GLUCOSE 2025-06-30 12:07 [facility] 126 mg/dl As of February 2023 testing method has changed, this may include reference ranges. RED CELL DISTRIBUTION WIDTH 2025-06-30 12:07 [facility] 13.7 % (missing) SODIUM 2025-06-30 12:07 [facility] 130 mmol/l (missing) NEUTROPHILS # (AUTO) 2025-06-30 12:07 [facility] 14.3 10 3/ul (missing) HGB - HEMOGLOBIN 2025-06-30 12:07 [facility] 14.4 g/dl (missing) WHITE BLOOD COUNT 2025-06-30 12:07 [facility] 16.1 x10 3/ul (missing) ALKALINE PHOSPHATASE 2025-06-30 12:07 [facility] 169 iu/l As of February 2023 testing method has changed, this may include reference ranges. PT - PROTHROMBIN TIME 2025-06-30 12:07 [facility] 17.1 secs N PLT - PLATELET COUNT 2025-06-30 12:07 [facility] 171 10 3/ul (missing) BUN - BLOOD UREA NITROGEN 2025-06-30 12:07 [facility] 21 mg/dl As of February 2023 testing method has changed, this may include reference ranges. CARBON DIOXIDE - CO2 2025-06-30 12:07 [facility] 23 mmol/l As of February 2023 testing method has changed, this may include reference ranges. ALT ALANINE AMINOTRANSFERASE 2025-06-30 12:07 [facility] 28 iu/l As of February 2023 testing method has changed, this may include reference ranges. LIPASE 2025-06-30 12:07 [facility] 28 u/l Moderately Icteric: Results may be affected. As of February 2023 testing method has changed, this may include reference ranges. ALBUMIN 2025-06-30 12:07 [facility] 3.5 g/dl As of February 2023 testing method has changed, this may include reference ranges. MEAN CORPUSCULAR HGB CONC 2025-06-30 12:07 [facility] 33.3 g/dl (missing) PARTIAL THROMBOPLASTIN TIME 2025-06-30 12:07 [facility] 35.6 secs N MEAN CORPUSCULAR HEMOGLOBIN 2025-06-30 12:07 [facility] 35.9 pg (missing) RED BLOOD COUNT 2025-06-30 12:07 [facility] 4.01 10 6/ul (missing) GLOBULIN 2025-06-30 12:07 [facility] 4.1 g/dl (missing) POTASSIUM 2025-06-30 12:07 [facility] 4.4 mmol/l As of February 2023 testing method has changed, this may include reference ranges. AST ASPARTATE AMINOTRANSFERASE 2025-06-30 12:07 [facility] 40 iu/l As of February 2023 testing method has changed, this may include reference ranges. HCT - HEMATOCRIT 2025-06-30 12:07 [facility] 43.3 % (missing) GFR - MDRD 2025-06-30 12:07 [facility] 61 (missing) The IDMS-traceable MDRD Study Equation has [...] caring for patients older than 70. References: http://www.nkdep.n ih.gov/lab-evaluat ion/gfr/creatinine -stand ardization, last updated October 2011. TOTAL PROTEIN 2025-06-30 12:07 [facility] 7.6 g/dl As of February 2023 testing method has changed, this may include reference ranges. MEAN PLATELET VOLUME 2025-06-30 12:07 [facility] 9.0 fl (missing) CALCIUM 2025-06-30 12:07 [facility] 9.4 mg/dl As of February 2023 testing method has changed, this may include reference ranges. CHLORIDE 2025-06-30 12:07 [facility] 95 mmol/l As of February 2023 testing method has changed, this may include reference ranges. Result panel 4 LACTIC ACID, VENOUS 2025-06-30 12:30 [facility] 2.8 mmol/l N Slightly Icteric: Results may be affected. As of February 2023 testing method has changed, this may include reference ranges. Result panel 5 SPECIFIC GRAVITY,URINE 2025-06-30 14:22 [facility] 1.010 (missing) (missing) UROBILINOGEN,URINE 2025-06-30 14:22 [facility] 2 e.u./dl (missing) PH,URINE 2025-06-30 14:22 [facility] 6.0 ph (missing) CLARITY,URINE 2025-06-30 14:22 [facility] CLEAR (missing) (missing) COLOR,URINE 2025-06-30 14:22 [facility] DARK YELLOW (missing) URINE CLEAN CATCH LEUKOCYTE ESTERASE, URINE 2025-06-30 14:22 [facility] NEGATIVE (missing) (missing) NITRITE,URINE 2025-06-30 14:22 [facility] NEGATIVE (missing) (missing) OCCULT BLOOD,URINE 2025-06-30 14:22 [facility] NEGATIVE (missing) (missing) BILIRUBIN,URINE 2025-06-30 14:22 [facility] NEGATIVE (missing) Bilirubin can be influenced by color interference. Please correlate positive results with clinical presentation GLUCOSE, URINE (UA) 2025-06-30 14:22 [facility] NEGATIVE mg/dl (missing) KETONES,URINE (UA) 2025-06-30 14:22 [facility] NEGATIVE mg/dl (missing) PROTEIN,URINE 2025-06-30 14:22 [facility] NEGATIVE mg/dl (missing) UR CULTURE IF IND 2025-06-30 14:22 [facility] NOT INDICATED (missing) (missing) URINE MICROSCOPIC INDICATED? 2025-06-30 14:22 [facility] NOT INDICATED (missing) (missing) Result panel 6 NUCLEATED RED BLOOD CELLS AUTO 2025-07-01 07:40 [facility] 0.0 /100wbc (missing) BASOPHILS # (AUTO) 2025-07-01 07:40 [facility] 0.0 10 3/ul (missing) EOSINOPHILS # (AUTO) 2025-07-01 07:40 [facility] 0.0 10 3/ul (missing) [facility] ABSOLUTE COUNT (AUTO) 2025-07-01 07:40 [facility] 0.00 x10 3/ul (missing) LYMPHOCYTES # (AUTO) 2025-07-01 07:40 [facility] 0.4 10 3/ul (missing) CREATININE 2025-07-01 07:40 [facility] 1.1 mg/dl As of February 2023 testing method has changed, this may include reference ranges. MONOCYTES # (AUTO) 2025-07-01 07:40 [facility] 1.2 10 3/ul (missing) INR 2025-07-01 07:40 [facility] 1.7 (missing ) Oral Anticoagulant Indication INR range Venous Thrombosis, P.E. 2.0 - 3.0 Mechanical Valve 2.5 - 3.5 MAGNESIUM 2025-07-01 07:40 [facility] 1.7 mg/dl As of February 2023 testing method has changed, this may include reference ranges. CHLORIDE 2025-07-01 07:40 [facility] 100 mmol/l As of February 2023 testing method has changed, this may include reference ranges. MEAN CORPUSCULAR VOLUME 2025-07-01 07:40 [facility] 109.8 fl (missing) HGB - HEMOGLOBIN 2025-07-01 07:40 [facility] 11.9 g /dl (missing) PLT - PLATELET COUNT 2025-07-01 07:40 [facility] 123 10 3/ul (missing) NEUTROPHILS # (AUTO) 2025-07-01 07:40 [facility] 13.0 10 3/ul (missing) GLUCOSE 2025-07-01 07:40 [facility] 130 mg/dl As of February 2023 testing method has changed, this may include reference ranges. SODIUM 2025-07-01 07:40 [facility] 132 mmol/l (missing) RED CELL DISTRIBUTION WIDTH 2025-07-01 07:40 [facility] 14.0 % (mi ssing) WHITE BLOOD COUNT 2025-07-01 07:40 [facility] 14.7 x10 3/ul (missing) PT - PROTHROMBIN TIME 2025-07-01 07:40 [facility] 19.0 secs N BUN - BLOOD UREA NITROGEN 2025-07-01 07:40 [facility] 25 mg/dl As of Feb testing method has changed, this may include reference ranges. CARBON DIOXIDE - CO2 2025-07-01 07:40 [facility] 26 mmol/l As of Feb testing method has changed, this may include reference ranges. RED BLOOD COUNT 2025-07-01 07:40 [facility] 3.27 10 6/ul (missing) MEAN CORPUSCULAR HGB CONC 2025-07-01 07:40 [facility] 33.1 g/dl (missing) HCT - HEMATOCRIT 2025-07-01 07:40 [facility] 35.9 % (missing) MEAN CORPUSCULAR HEMOGLOBIN 2025-07-01 07:40 [facility] 36.4 pg (missing) PHOSPHORUS 2025-07-01 07:40 [facility] 4.4 mg/dl As of February 2023 testing method has changed, this may include reference ranges. POTASSIUM 2025-07-01 07:40 [facility] 4.4 mmol/l As of February 2023 testing method has changed, this may include reference ranges. ANION GAP 2025-07-01 07:40 [facility] 6.0 (missing ) (missing) GFR - MDRD 2025-07-01 07:40 [facility] 68 (in g) The IDME-traceable MDRD Study Equation has been validated extensively [...] caring for patients older than 70. References: http://www.nkdep.ni h.gov/lab-evaluatio n/gfr/creatinine-st and ardization, last updated October 2011. CALCIUM 2025-07-01 07:40 [facility] 8.5 mg/dl As of February 2023 testing method has changed, this may include reference ranges. MEAN PLATELET VOLUME 2025-07-01 07:40 [facility] 8.9 fl (missing) Social History date description facility
--- NOTE | 2025-07-01 14:22 | XRAY Report ---
PROCEDURE: XR Chest 1V INDICATIONS: Hypoxemia TECHNIQUE: One view of the chest was acquired. COMPARISON: 06/30/2025 FINDINGS: Surgical changes and devices: None. Lungs and pleura: Moderate right and small left pleural effusions. Mediastinum: Mediastinal contours appear normal. Heart size is enlarged. Bones and chest wall: No suspicious bony lesions. Overlying soft tissues appear unremarkable. IMPRESSION: Moderate right and small left pleural effusions. Findings are unchanged from prior. Reviewed by: Ruddy Crook MD on 07/01/2025 2:19 PM PST Approved by: Ruddy Crook MD on 07/01/2025 2:19 PM PST Station ID: [id number]
[2025-07-01] MEDS: FUROSEMIDE 40 MG TABLET PO SCH (14:34)
[2025-07-01] MEDS: SPIRONOLACTONE 25 MG TABLET PO SCH (14:35)
--- NOTE | 2025-07-01 16:03 | PHARMACY PROGRESS NOTE ---
Best Possible Medication History Admit Date and Time: 07/01/25 0911 Home Medications Medication Instructions Recorded Confirmed Type apixaban 5 mg tablet 5 mg PO BID 06/10/24 5 History nitroglycerin 0.4 mg sublingual 0.4 mg sublingual Q5M PRN chest 07/23/24 07/01/25 Rx tablet pain #30 tabs docusate sodium 250 mg capsule 250 mg PO DAILY PRN con stipation 01/24/25 07/01/25 History furosemide 40 mg tablet 40 mg PO QAM #90 tabs 07/01/25 Rx metoprolol succinate 25 mg 25 mg PO BID 04/01/2507/01 History tablet,extended release 24 hr pantoprazole 20 mg tablet,delayed 20 mg PO DAILY 04/0107/01/25 History release spironolactone 100 mg tablet 100 mg PO QAM 04/01/25 History oxycodone 5 mg tablet 2.5 - 5 mg (0.5 - 1 x 5 mg) PO BID 06/12/25 07/01/25 Rx PRN severe pain #60 tabs multivitamin (Daily Multi-Vitamin 1 tab PO DAILY 07/0107/01/25 History tablet) Processed by: Pharmacy (Medication reconciliation completed by [employer] ConsultantKayce) Medications reviewed in ED?: No Medication History completed: Yes Patient Interview: Completed [facility] Statement: As the person ultimately responsible for medication therapy, providers are able to order a medication from an existing home medication list in [facility] via the "Reconcile Routine" prior to Confirmation of that medication by academic support director. Such practice is discouraged except when the physician, in their clinical judgment, deems that a medical need exists for a medication without regard to previous use.
[2025-07-01] MEDS: METOPROLOL SUCCINATE 25 MG TABLET PO SCH (20:55)
[2025-07-02 05:58] LABS: HCT - HEMATOCRIT 34.8 % (42.0-52.0); HGB - HEMOGLOBIN 11.8 g/dL (14.0-18.0); MEAN PLATELET VOLUME 9.2 fL (7.4-11.4); NRBC ABSOLUTE COUNT (AUTO) 0.00 x10^3/uL; NUCLEATED RED BLOOD CELLS AUTO 0.0 /100WBC; PLT - PLATELET COUNT 143 10^3/uL (130-450); RED CELL DISTRIBUTION WIDTH 13.8 % (12.0-15.0)
[2025-07-02 06:15] LABS: ALT ALANINE AMINOTRANSFERASE 15.0 IU/L (10-60); AST ASPARTATE AMINOTRANSFERASE 23.0 IU/L (10-42); BUN - BLOOD UREA NITROGEN 23.0 mg/dL (6-20); CARBON DIOXIDE - CO2 28.0 mmol/L (21-32); CREATININE 1.0 mg/dL (0.6-1.3); GFR - MDRD 76.0 (>89); PHOSPHORUS 2.7 mg/dL (2.5-5.0)
[2025-07-02 06:22] LABS: PLATELET ESTIMATE, MANUAL NORMAL (130-450,000) (NORMAL); PLATELET MORPHOLOGY NORMAL APPEARANCE (NORMAL); RBC MORPHOLOGY (MULTIPLE) NORMAL APPEARANCE (NORMAL); WBC MORPHOLOGY (MULTIPLE) NORMAL APPEARANCE (NORMAL)
--- NOTE | 2025-07-02 07:25 | PROVIDER PROGRESS NOTE ---
Subjective Prog Note Date Prog Note Date: 07/02/25 Prog Note Time: 07:22 Subjective Subjective: Patient was seen and evaluated. No acute events overnight. Labs overall look improved. Patient has persistent leukocytosis 14.1 this morning. Hemoglobin stable from yesterday 11.8. Platelets 143. Sodium 129, chloride 98, creatinine 1.0, bili 6.0. Chest x-ray from yesterday chest reveals some bilateral effusion. No focal consolidations. Patient is down to 1 L O2 via NC. Resuming [employer] diuretics today per plan. Patient says he feels pretty good today. Does not feel short of breath. He had 1 hard bowel movement overnight. Receiving an enema this morning. Additional BM this morning. Says he has not yet passed gas. He has bowel tones. Continues to have abdominal pain around his incision. Worsened with movement. Denies fever/chills, chest pain, dyspnea, nausea or vomiting. Current Medications Current Medications Current Medications: Current Medications Generic Name Dose Route Start Last Admin Trade Name Freq PRN Reason Stop Dose Admin Furosemide 40 mg 07/01/25 14:00 07/01/25 14:34 Furosemide 40 Mg Tablet PO 40 mg DAILY REBECA Administration Hydromorphone HCl 0.5 mg 06/30/25 16:43 07/02/25 05:18 Hydromorphone 0.5 Mg/0.5 Ml Syringe IVP 0.5 mg Q2H PRN Administration Pain 8 to 10 Potassium Chloride/Dextrose/Sod Cl 1,000 mls @ 100 mls/hr 07/01/25 10:00 07/02/25 06:25 D5.45ns W/20 Meq Kcl IV 0 mls/hr .Q10H REBECA Infusion Metoclopramide HCl 10 mg 06/30/25 19:08 Metoclopramide 10 Mg/2 Ml Vial IVP Q6HR PRN N/V not relieved by Zofran Metoprolol Succinate 25 mg 07/01/25 21:00 07/01/25 20:55 Metoprolol Succinate 25 Mg Tablet PO 25 mg BID REBECA Administration Ondansetron HCl 4 mg 06/30/25 16:43 07/01/25 11:00 Ondansetron 4 Mg/2 Ml Vial IVP 4 mg Q6HR PRN Administration Nausea / Vomiting Sodium Chloride 10 ml 06/30/25 16:43 06/30/25 23:04 Sodium Chloride Flush 0.9% 10 Ml Syringe IVP 10 ml PRN PRN Administration NEEDED PER PROVIDER ORDERS Sodium Chloride 10 ml 06/30/25 17:00 07/02/25 05:18 Sodium Chloride Flush 0.9% 10 Ml Syringe IVP 10 ml 0100,0900,1700 REBECA Administration Spironolactone 100 mg 07/01/25 14:00 07/01/25 14:35 Spironolactone 25 Mg Tablet PO 100 mg DAILY REBECA Administration Objective Vital Signs/Intake & Output Reviewed Vital Signs: Yes Vital Signs: Vital Signs x48h Temp Pulse Resp BP Pulse Ox O2 Flow Rate 07/02/25 05:01 36.6 C 94 20 107/73 94 1 07/01/25 23:27 37.1 C 84 22 107/77 95 1 Intake & Output: Intake & Output 06/29/25 06/30/25 07/01/25 07/02/25 23:59 23:59 23:59 23:59 Intake Total 4700 / 4700 3350 / 3350 950 / 950 Output Total 900 / 900 1350 / 1350 875 / 875 Balance 3800 / 3800 1999 / 1999 75 / 75 Weight (kg) 90.718 kg Objective Comments/Other: GEN: No acute distress, lying in bed HEENT: NC/AT, normal appearance of external ears and nose. Hearing baseline. Cardiac: Regular rate and rhythm, no murmurs. Palpable distal pulses Pulm: Good air movement throughout his lung nguyen. No wheezes. No adventitial lung sounds. Normal effort on 1 L O2, not using accessory muscles. Abdomen: Abdominal binder in place, dressing CDI. Abdomen is distended, not tense. Tender to palpation. Extremities: Moves all 4 extremities equally. Normal tone. Neuro: Face symmetric, CN II through XII intact grossly. No focal neurologic deficits. No tremor. Gait exam deferred Psych: Mood euthymic with congruent affect. Oriented x 4 Lab Results 07/02/25 05:40 07/02/25 05:40 Other Labs: Lab Results x24hrs 07/02/25 07/01/25 Range/Units 05:40 07:40 WBC 14.1 H 14.7 H (4.8-10.8) x10^3/uL RBC 3.20 L 3.27 L (4.70-6.10) 10^6/uL Hgb 11.8 L 11.9 L (14.0-18.0) g/dL Hct 34.8 L 35.9 L (42.0-52.0) % MCV 108.8 H 109.8 H (80.0-94.0) fL MCH 36.9 H 36.4 H (27.0-31.0) pg MCHC 33.9 33.1 (32.0-36.0) g/dL RDW 13.8 14.0 (12.0-15.0) % Plt Count 143 123 L (130-450) 10^3/uL MPV 9.2 8.9 (7.4-11.4) fL Neut # (Auto) 11.3 H 13.0 H (1.5-6.6) 10^3/uL Lymph # (Auto) 0.9 L 0.4 L (1.5-3.5) 10^3/uL [place] # (Auto) 1.6 H 1.2 H (0.0-1.0) 10^3/uL Eos # (Auto) 0.2 0.0 (0.0-0.7) 10^3/uL Baso # (Auto) 0.0 0.0 (0.0-0.1) 10^3/uL Absolute Nucleated RBC 0.00 0.00 x10^3/uL Band Neuts % (Manual) Not Reportable Abnorm Lymph % (Manual) Not Reportable Nucleated RBC % 0.0 0.0 /100WBC Neutrophils # (Manual) Not Reportable Lymphocytes # (Manual) Not Reportable Monocytes # (Manual) Not Reportable Eosinophils # (Manual) Not Reportable Basophils # (Manual) Not Reportable Differential Comment MANUAL=AUTO DIFF WBC Morphology NORMAL APPEARANCE (NORMAL) Platelet Estimate NORMAL (130-450,000) (NORMAL) Platelet Morphology NORMAL APPEARANCE (NORMAL) RBC Morph Micro Appear NORMAL APPEARANCE (NORMAL) PT 19.0 H (9.9-12.6) secs INR 1.7 H (0.8-1.2) Sodium 129 L 132 L (135-145) mmol/L Potassium 4.2 4.4 (3.5-4.5) mmol/L Chloride 98 L 100 L (101-111) mmol/L Carbon Dioxide 28 26 (21-32) mmol/L Anion Gap 3.0 L 6.0 (6-13) BUN 23 H 25 H (6-20) mg/dL Creatinine 1.0 1.1 (0.6-1.3) mg/dL Estimated GFR (MDRD) 76 L 68 L (>89) Glucose 134 H 130 H (74-104) mg/dL Calcium 8.5 8.5 (8.5-10.3) mg/dL Phosphorus 2.7 4.4 (2.5-5.0) mg/dL Magnesium 1.7 1.7 (1.7-2.3) mg/dL Total Bilirubin 6.0 H (0.2-1.0) mg/dL Direct Bilirubin 2.57 H (0.03-0.18) mg/dL AST 23 (10-42) IU/L ALT 15 (10-60) IU/L Alkaline Phosphatase 109 (42-121) IU/L Total Protein 6.0 L (6.4-8.9) g/dL Albumin 2.8 L (3.2-5.5) g/dL Globulin 3.2 (2.1-4.2) g/dL Assessment/Plan Problem List (1) Incarcerated hernia: Impression: Intervally improved. Seems to be demonstrating some return of bowel function. Bowel tones are present. He is having bowel movements. He is not nauseous or vomiting. Still having pain from his operative site. Abdominal binder is on. Recall that he had a incarcerated hernia on presentation. S/p ex lap with general surgery on 06/30. Did not need any bowel resection. - Per surgery, maintaining NPO except meds, on fluids - Adding scheduled oral Tylenol 500 mg 3 times daily, okay with his cirrhosis - Avoid NSAIDs in the setting of cirrhosis - Has abdominal binder in place - Continue encourage up to the chair with meals mobilize as able. - Discharge timeline TBD per primary team (2) Bowel obstruction: Impression: Resolved as above. In the setting of incarcerated hernia, now postoperative. Qualifiers: Intestinal obstruction extent: unspecified extent Intestinal obstruction type: unspecified Qualified Code(s): K56.609 - Unspecified intestinal obstruction, unspecified as to partial versus complete obstruction (3) Alcoholic cirrhosis of liver with ascites: Impression: Stable. Mild downtrended slightly from yesterday MELD 23, Child Tal[place] class C Longstanding history of alcohol-related cirrhosis. Originally diagnosed around 2022. Follows with palliative care. He has attempted to get in with hepatology previously but has been unsuccessful. Quit drinking around the time of his diagnosis. Denies any significant ascites since his diagnosis. Remains vigilant on his diuretic regimen. No history of esophageal varices. No history of HE. - Continue monitoring CMP, CBC, INR daily - Continue furosemide 40 mg, Aldactone 100 mg restarted on 07/02 - Will consider starting on feeds today, patient having bowel movements - Start lactulose if encephalopathic - Recommend he follows up with hepatology, would benefit from liver transplant. (4) Acute hypoxemic respiratory failure: Impression: Intervally improved. Patient on 1 L of oxygen via NC. Started on diuretics as above. Lung exam more clear today. No significant rales. - Diuretics as above - Continue strict I/O - Wean oxygen as tolerated, goal sat > 92% - Continue pulmonary toileting (5) Atrial fibrillation: Impression: Stable. Remains rate controlled Longstanding persistent atrial fibrillation. 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 Rates were elevated after surgery in the setting of holding his beta-polo. [id number] = 0. No history of CHF, vascular disease, diabetes, HTN or prior stroke. HASBLED =1 for hx fo liver disease - Continue metoprolol - Would recommend indefinitely holding anticoagulation I spent a total of 47 minutes in the care of this patient today. This time was spent reviewing labs, vital signs, imaging, interviewing and examining the patient, and discussing plan of care with them and their other care providers. Managing 2 or more stable chronic conditions. Review of tests as above. Medication management as above. [id number] Qualifiers: Atrial fibrillation type: persistent (not longstanding) Qualified Code(s): I48.19 - Other persistent atrial fibrillation
--- NOTE | 2025-07-02 09:34 | XRAY Report ---
PROCEDURE: XR Abdomen 1 V INDICATIONS: evaluate for sbo vs ileus TECHNIQUE: 1 view of the abdomen were acquired. COMPARISON: 06/30/2025 FINDINGS: Surgical changes and devices: None. Bowel: Distended loops of small and large bowel Soft tissues: No masses; visualized solid organ contours appear normal in size. No suspicious abdominal calcifications. Bones: No suspicious bony abnormalities. IMPRESSION: Distended loops of small and large bowel, likely ileus. Reviewed by: Ruddy Crook MD on 07/02/2025 9:31 AM PST Approved by: Ruddy Crook MD on 07/02/2025 9:31 AM PST Station ID: [id number]
[2025-07-02] MEDS: SOAP SUDS ENEMA 1 EACH RC ONE (09:37)
--- NOTE | 2025-07-02 11:20 | PROVIDER PROGRESS NOTE ---
Subjective General Admit Date: 07/01/25 Procedure Date: 06/30/25 Post Op Days: 2 Procedure Performed: Open ventral hernia repair with mesh placement Other Other Information/Narrative: Doing well today, pain controlled, states he had a small BM last night that was really hard, still no flatus, minimally OOB, oxygen requirements decreasing. Denies significant nausea but is having severe acid reflux. Wound Assessment Wound/Incisions: positive Healing well Review of Systems Status of ROS: 10 or more systems reviewed and unremarkable except as noted in history and below Exam Exam Vital Signs: Vital Signs x48h Temp Pulse Resp BP Pulse Ox O2 Flow Rate 07/02/25 07:48 36.7 C 85 20 119/83 94 1 07/02/25 05:01 36.6 C 94 20 107/73 94 1 Constitutional normal general appearance and no apparent distress HENMT normocephalic and head/scalp atraumatic Eyes conjunctivae normal Neck/C-Spine visual inspection normal Respiratory normal respiratory effort Cardiovascular normal heart rate noted and regular rhythm noted Gastrointestinal Wearing abdominal binder, dressing removed during exam, latasha in situ and healing appropriately, abdomen soft and appropriately TTP, mildly distended. Extremities normal to inspection Neurology GCS 15 Psychiatry cooperative and affect normal Skin skin color normal Impression/Plan Problem List (1) Incarcerated hernia: (2) Bowel obstruction: Qualifiers: Intestinal obstruction extent: unspecified extent Intestinal obstruction type: unspecified Qualified Code(s): K56.609 - Unspecified intestinal obstruction, unspecified as to partial versus complete obstruction (3) Alcoholic cirrhosis of liver with ascites: (4) Acute hypoxemic respiratory failure: (5) Atrial fibrillation: Qualifiers: Atrial fibrillation type: persistent (not longstanding) Qualified Code(s): I48.19 - Other persistent atrial fibrillation Plan 64-year-old male with known liver disease and pancytopenia who presented today after having his umbilical hernia incarcerated for approximately 24 hours. He was evaluated by myself in the ED with attempts to reduce his hernia which were unsuccessful after which I recommended urgent operation as the feeling was there was bowel in the hernia. Upon discussion with him and his sister they state that he has very high risk for surgery per prior discussions due to his liver disease (MELD-Na score of 26, Child class B) and they request the patient transferred to [facility] for management of this issue. The ED doctor attempted to coordinate transfer with [facility] but they stated that he was not appropriate for transfer to their hospital. After which I reevaluated the patient and he was then agreeable to surgery here at [facility]. 06/30: Open ventral hernia repair with mesh placement; discovered viable bowel in the hernia which was reduced so proceeded with ventral hernia repair with 11cm x 14cm mesh. - NPO w/ IVF, sips and chips OK - Pain and nausea control as needed - Tums and Protonix added for GERD - Enema this morning as he described his BM as "concrete" - Encourage OOB/ambulation - Appreciate medicine input - XR this AM; demonstrates ileus - Await return bowel function
[2025-07-02] MEDS: PANTOPRAZOLE 40 MG VIAL IVP SCH (11:32)
[2025-07-02] MEDS: CALCIUM CARBONATE CHEW 500 MG TABLET PO PRN (11:33)
[2025-07-02] MEDS: ACETAMINOPHEN 500 MG TABLET PO SCH (12:06)
--- NOTE | 2025-07-02 16:05 | PT Plan of Care ---
PT Plan of Care Physical Therapy Plan of Care: Diagnosis Diagnosis incarcerated inguinal hernia Diagnosis s/p open ventral hernia repair 06/30/25 Referring Provider Patrice London Patient Status Inpatient Chief Complaint Chief Complaint abdominal pain Onset of Chief Complaint [facility] Medical History (Updated 07/01/25 @ 13:13 by Tremaine Hobson, DO) History of cardioversion Sleep apnea Inguinal hernia Right shoulder injury Chronic intermittent hypoxia with obstructive sleep apnea (12/27/23) Single acquired cyst of kidney (10/05/23) Periodic health assessment, general screening, adult (08/10/23) Depression with anxiety (06/20/23) 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 POD #2, cleared for eval by surgeon. PMH includes Afib s/p cardioversion, on palliative care. Please see medical record for further hx. Upon PT eval, pt reclining in b/s chair, agrees to work with PT. A&Ox4 on 1L O2 SpO2 97% throughout session. Pt is cueable but becomes frustrated during hx taking. Redirectable but states he is frustrated with "repetitive questions" asked by PT and other HC providers. PT educates pt on goals of eval and reason for repetition; pt willing to continue. Overall able to transfer and amb in room without AD and SBA only. Limited primarily by pain, reporting 8/10 abdominal pain after activity. Gait notable for WBOS with BL toe out posture but no LOB and no assist required. Pt appears near baseline mobility with minimal acute PT need. Plan for 1-2 additional sessions during acute stay for education regarding post-op abdominal precautions and expected activity progression. Do not anticipate extensive rehab need s/p dc though pt may benefit from HHPT for home safety assessment. Will update recs closer to time of dc. Goals Improve bed mobility to: Modified Independent Improve supine to sit to: Modified Independent Improve sit to stand to: Modified Independent Improve pivot transfer ability Modified Independent to: Improve sit to supine to: Modified Independent Improve gait ability to: Ind Assistive Device Used: None PT Plan of Care Duration 1-2 add'l sessions Discharge Recommendations Discharge Location Previous Living Situation Support/Services Needed Home Health P.T. Other none anticipated Transport Needs at Discharge Personal vehicle
[2025-07-03 04:50] LABS: HCT - HEMATOCRIT 34.6 % (42.0-52.0); HGB - HEMOGLOBIN 11.7 g/dL (14.0-18.0); MEAN PLATELET VOLUME 9.3 fL (7.4-11.4); NRBC ABSOLUTE COUNT (AUTO) 0.00 x10^3/uL; NUCLEATED RED BLOOD CELLS AUTO 0.0 /100WBC; PLT - PLATELET COUNT 133 10^3/uL (130-450); RED CELL DISTRIBUTION WIDTH 13.8 % (12.0-15.0)
[2025-07-03 04:57] LABS: INR 1.7 (0.8-1.2); PT - PROTHROMBIN TIME 18.9 secs (9.9-12.6)
[2025-07-03 05:05] LABS: ALT ALANINE AMINOTRANSFERASE 13.0 IU/L (10-60); AST ASPARTATE AMINOTRANSFERASE 21.0 IU/L (10-42); BUN - BLOOD UREA NITROGEN 23.0 mg/dL (6-20); CARBON DIOXIDE - CO2 26.0 mmol/L (21-32); CREATININE 0.9 mg/dL (0.6-1.3); GFR - MDRD 86.0 (>89)
--- NOTE | 2025-07-03 06:19 | PROVIDER PROGRESS NOTE ---
Subjective General Admit Date: 07/01/25 Procedure Date: 06/30/25 Post Op Days: 3 Procedure Performed: Open ventral hernia repair with mesh placement Other Other Information/Narrative: Doing well this morning, states his abdomen is feeling much better after having multiple BM's and flatus, tolerating clears and asking for food, OOB w/ assistance. Denies chest pain, SOB, fevers or chills. Wound Assessment Wound/Incisions: positive Healing well Review of Systems Status of ROS: 10 or more systems reviewed and unremarkable except as noted in history and below Exam Exam Vital Signs: Vital Signs x48h Temp Pulse Resp BP Pulse Ox 07/03/25 04:41 36.5 C 86 14 103/74 92 07/03/25 00:25 36.5 C 84 12 107/72 95 Constitutional normal general appearance and no apparent distress HENMT normocephalic and head/scalp atraumatic Eyes conjunctivae normal Neck/C-Spine visual inspection normal Respiratory normal respiratory effort Cardiovascular normal heart rate noted and regular rhythm noted Gastrointestinal abdomen soft to palpation Wearing abdominal binder, dressing, latasha in situ and healing appropriately, abdomen soft and appropriately TTP, nondistended, seroma under umbilicus. Extremities normal to inspection Neurology GCS 15 Psychiatry cooperative and affect normal Skin skin color normal Impression/Plan Problem List (1) Incarcerated hernia: (2) Bowel obstruction: Qualifiers: Intestinal obstruction extent: unspecified extent Intestinal obstruction type: unspecified Qualified Code(s): K56.609 - Unspecified intestinal obstruction, unspecified as to partial versus complete obstruction (3) Alcoholic cirrhosis of liver with ascites: (4) Acute hypoxemic respiratory failure: (5) Atrial fibrillation: Qualifiers: Atrial fibrillation type: persistent (not longstanding) Qualified Code(s): I48.19 - Other persistent atrial fibrillation Plan 64-year-old male with known liver disease and pancytopenia who presented today after having his umbilical hernia incarcerated for approximately 24 hours. He was evaluated by myself in the ED with attempts to reduce his hernia which were unsuccessful after which I recommended urgent operation as the feeling was there was bowel in the hernia. Upon discussion with him and his sister they state that he has very high risk for surgery per prior discussions due to his liver disease (MELD-Na score of 26, Child class B) and they request the patient transferred to [facility] for management of this issue. The ED doctor attempted to coordinate transfer with [facility] but they stated that he was not appropriate for transfer to their hospital. After which I reevaluated the patient and he was th en agreeable to surgery here at [facility]. 06/30: Open ventral hernia repair with mesh placement; discovered viable bowel in the hernia which was reduced so proceeded with ventral hernia repair with 11cm x 14cm mesh. - Diet as tolerated - Pain and nausea control as needed - Encourage OOB/ambulation - Appreciate medicine input - Dispo planning today vs tomorrow
--- NOTE | 2025-07-03 07:34 | Discharge Summary ---
Discharge Summary Admit Date: 07/01/25 Discharge Date: 07/03/25 Discharging Provider: Tremaine Hobson Primary Care Provider: Shereen Armendariz Code Status: Attempt Resuscitation Discharge Facility Name: Home ALLERGIES Allergies Allergy/AdvReac Type Severity Reaction Status Date / Time No Known Drug Allergies Allergy Verified 06/30/25 11:52 MEDICATIONS Ambulatory Orders Medication Instructions Recorded Confirmed apixaban 5 mg tablet 5 mg PO BID 06/10/24 5 nitroglycerin 0.4 mg sublingual 0.4 mg sublingual Q5M PRN chest 07/23/24 07/01/25 tablet pain #30 tabs docusate sodium 250 mg capsule 250 mg PO DAILY PRN con stipation 01/24/25 07/01/25 furosemide 40 mg tablet 40 mg PO QAM #90 tabs 07/01/25 metoprolol succinate 25 mg 25 mg PO BID 04/01/2507/01 tablet,extended release 24 hr pantoprazole 20 mg tablet,delayed 20 mg PO DAILY 04/0107/01/25 release spironolactone 100 mg tablet 100 mg PO QAM 04/01/25 oxycodone 5 mg tablet 2.5 - 5 mg (0.5 - 1 x 5 mg) PO BID 06/12/25 07/01/25 PRN severe pain #60 tabs multivitamin (Daily Multi-Vitamin 1 tab PO DAILY 07/0107/01/25 tablet) PHYSICAL EXAM AT DISCHARGE Vital Signs: Vital Signs x48h Temp Pulse Resp BP Pulse Ox 07/03/25 04:41 36.5 C 86 14 103/74 92 07/03/25 00:25 36.5 C 84 12 107/72 95 LABS 07/03/25 04:39 07/03/25 04:39 Discharge Plan Discharge Condition: Stable Prescriptions: No Action oxycodone 5 mg tablet 2.5 - 5 mg PO BID PRN (Reason: severe pain) Qty: 60 0RF nitroglycerin 0.4 mg tablet, sublingual 0.4 mg sublingual Q5M PRN (Reason: chest pain) Qty: 30 0RF Rx Instructions: do not exceed 3 doses per episode multivitamin [Daily Multi-Vitamin] Tablet 1 tab PO DAILY apixaban 5 mg tablet 5 mg PO BID metoprolol succinate 25 mg tablet extended release 24 hr 25 mg PO BID spironolactone 100 mg tablet 100 mg PO QAM pantoprazole 20 mg tablet,delayed release (DR/EC) 20 mg PO DAILY docusate sodium 250 mg capsule 250 mg PO DAILY PRN (Reason: constipation) furosemide 40 mg tablet 40 mg PO QAM Qty: 90 3RF Print Language: [place] Stand Alone Forms: PCP List Follow-up Care: Shereen Armendariz, [employer] [Primary Care Provider, Family Practice] Vitals documented within 30 minutes of discharge?: Yes
--- NOTE | 2025-07-03 13:48 | PROVIDER PROGRESS NOTE ---
Subjective Prog Note Date Prog Note Date: 07/03/25 Prog Note Time: 13:39 Subjective Subjective: Patient feels good today. He is up to the chair. Eating a meal. He has been tolerating a regular diet since this morning. He met with general surgery this morning, he has been having bowel movements throughout the night and is not passing gas. Ileus is resolved. Discussed with general surgery, we will assume primary as we anticipate nearing discharge. His surgical needs are improved. Continues to have postoperative pain. He only had IV narcotics ordered for him as of this morning. Other than his pain in his abdomen, patient feels like he is doing well. He is on room air. Denies any chest pain, dyspnea, nausea, vomiting, or diarrhea. He is having formed bowel movements. Current Medications Current Medications Current Medications: Current Medications Generic Name Dose Route Start Last Admin Trade Name Freq PRN Reason Stop Dose Admin Acetaminophen 500 mg 07/02/25 11:30 07/03/25 13:36 Acetaminophen 500 Mg Tablet PO 500 mg TID REBECA Administration Calcium Carbonate/Glycine 500 mg 07/02/25 11:09 07/02/25 11:33 Calcium Carbonate Chew 500 Mg Tablet PO 500 mg QID PRN Administration Acid reflux Furosemide 40 mg 07/01/25 14:00 07/03/25 08:26 Furosemide 40 Mg Tablet PO 40 mg DAILY REBECA Administration Metoprolol Succinate 25 mg 07/01/25 21:00 07/03/25 08:38 Metoprolol Succinate 25 Mg Tablet PO 25 mg BID REBECA Administration Ondansetron HCl 4 mg 06/30/25 16:43 07/01/25 11:00 Ondansetron 4 Mg/2 Ml Vial IVP 4 mg Q6HR PRN Administration Nausea / Vomiting Oxycodone HCl 5 mg 07/03/25 09:11 Oxycodone 5 Mg Tablet PO Q4HR PRN Moderate Pain (Level 4-6) Pantoprazole Sodium 40 mg 07/04/25 07:00 Pantoprazole 40 Mg Tablet PO QDAC REBECA Sodium Chloride 10 ml 06/30/25 16:43 07/02/25 22:15 Sodium Chloride Flush 0.9% 10 Ml Syringe IVP 10 ml PRN PRN Administration NEEDED PER PROVIDER ORDERS Sodium Chloride 10 ml 06/30/25 17:00 07/03/25 08:27 Sodium Chloride Flush 0.9% 10 Ml Syringe IVP 10 ml 0100,0900,1700 REBECA Administration Spironolactone 100 mg 07/01/25 14:00 07/03/25 08:26 Spironolactone 25 Mg Tablet PO 100 mg DAILY REBECA Administration Objective Vital Signs/Intake & Output Reviewed Vital Signs: Yes Vital Signs: Vital Signs x48h Temp Pulse Resp BP Pulse Ox 07/03/25 11:17 94 07/03/25 07:50 36.6 C 90 16 109/78 92 Intake & Output: Intake & Output 06/30/25 07/01/25 07/02/25 07/03/25 23:59 23:59 23:59 23:59 Intake Total 4700 / 4700 3350 / 3350 3167 / 3167 150 / 150 Output Total 900 / 900 1350 / 1350 1825 / 1825 250 / 250 Balance 3800 / 3800 1999 / 1999 1342 / 1342 -100 / -100 Weight (kg) 90.718 kg Objective Comments/Other: GEN: No acute distress, lying in bed HEENT: NC/AT, normal appearance of external ears and nose. Hearing baseline. Cardiac: Regular rate and rhythm, no murmurs. Palpable distal pulses Pulm: Lungs CTA bilaterally. No adventitial lung sounds. No wheezing. Normal effort on room air. Abdomen: Abdominal binder in place, dressing CDI. Abdomen is distended, not tense. Tender to palpation. Extremities: Moves all 4 extremities equally. Normal tone. Neuro: Face symmetric, CN II through XII intact grossly. No focal neurologic deficits. No tremor. Gait exam deferred Psych: Mood euthymic with congruent affect. Oriented x 4 Lab Results 07/03/25 04:39 07/03/25 04:39 Other Labs: Lab Results x24hrs 07/03/25 Range/Units 04:39 WBC 11.1 H (4.8-10.8) x10^3/uL RBC 3.15 L (4.70-6.10) 10^6/uL Hgb 11.7 L (14.0-18.0) g/dL Hct 34.6 L (42.0-52.0) % MCV 109.8 H (80.0-94.0) fL MCH 37.1 H (27.0-31.0) pg MCHC 33.8 (32.0-36.0) g/dL RDW 13.8 (12.0-15.0) % Plt Count 133 (130-450) 10^3/uL MPV 9.3 (7.4-11.4) fL Neut # (Auto) 7.9 H (1.5-6.6) 10^3/uL Lymph # (Auto) 1.2 L (1.5-3.5) 10^3/uL [place] # (Auto) 1.5 H (0.0-1.0) 10^3/uL Eos # (Auto) 0.4 (0.0-0.7) 10^3/uL Baso # (Auto) 0.1 (0.0-0.1) 10^3/uL Absolute Nucleated RBC 0.00 x10^3/uL Nucleated RBC % 0.0 /100WBC PT 18.9 H (9.9-12.6) secs INR 1.7 H (0.8-1.2) Sodium 129 L (135-145) mmol/L Potassium 4.0 (3.5-4.5) mmol/L Chloride 98 L (101-111) mmol/L Carbon Dioxide 26 (21-32) mmol/L Anion Gap 5.0 L (6-13) BUN 23 H (6-20) mg/dL Creatinine 0.9 (0.6-1.3) mg/dL Estimated GFR (MDRD) 86 L (>89) Glucose 113 H (74-104) mg/dL Calcium 8.5 (8.5-10.3) mg/dL Total Bilirubin 5.4 H (0.2-1.0) mg/dL AST 21 (10-42) IU/L ALT 13 (10-60) IU/L Alkaline Phosphatase 87 (42-121) IU/L Total Protein 5.5 L (6.4-8.9) g/dL Albumin 2.7 L (3.2-5.5) g/dL Globulin 2.8 (2.1-4.2) g/dL Albumin/Globulin Ratio 1.0 (1.0-2.2) Assessment/Plan Problem List (1) Incarcerated hernia: Impression: Continues to improve. He has had returned of bowel function. Ileus resolved. Having bowel movements. No nausea. Tolerating regular diet as of this early afternoon. Recall that he had a incarcerated hernia on presentation. S/p ex lap with general surgery on 06/30. Did not need any bowel resection. - Regular diet - Medicine will assume primary pending discharge - Continue scheduled oral Tylenol 500 mg 3 times daily - Avoid NSAIDs in the setting of cirrhosis - Has abdominal binder in place - Discussed with patient, discontinuing parenteral narcotics, ordering oxycodone 5 mg every 4 hours as needed - Depending on narcotic need, can likely discharge 07/04, Patient in agreement - Discharge criteria are pain control, eating and drinking, and ability to ambulate. - Continue encourage up to the chair with meals mobilize as able. (2) Bowel obstruction: Impression: Resolved as above. In the setting of incarcerated hernia, now postoperative. Qualifiers: Intestinal obstruction extent: unspecified extent Intestinal obstruction type: unspecified Qualified Code(s): K56.609 - Unspecified intestinal obstruction, unspecified as to partial versus complete obstruction (3) Alcoholic cirrhosis of liver with ascites: Impression: Bilirubin continues to intervally improved. Stable generally. Total protein down to 5.5, diet resumed as above MELD 23, Child [place] class C as of 07/02 Longstanding history of alcohol-related cirrhosis. Originally diagnosed around 2022. Follows with palliative care. He has attempted to get in with hepatology previously but has been unsuccessful. Quit drinking around the time of his diagnosis. Denies any significant ascites since his diagnosis. Remains vigilant on his diuretic regimen. No history of esophageal varices. No history of HE. - No further lab monitoring necessary, pending discharge - Continue furosemide 40 mg, Aldactone 100 mg restarted on 07/02 - Feeding as above. High-protein diet. Adding supplements - Start lactulose if encephalopathic - Recommend he follows up with hepatology, would benefit from liver transplant. (4) Acute hypoxemic respiratory failure: Impression: Intervally improved. Patient is on room air at rest. Fluids been stopped for greater than 24 hours. Started on diuretics as above. Pulmonary exam is clear. No significant rales. - Diuretics as above - Continue strict I/O - Continue pulmonary toileting and mobility as above (5) Atrial fibrillation: Impression: Stable. Remains rate controlled Longstanding persistent atrial fibrillation. [employer] is on metoprolol and apixaban. Rates were elevated after surgery in the setting of holding his beta-polo. [id number] = 0. No history of CHF, vascular disease, diabetes, HTN or prior stroke. HASBLED =1 for hx fo liver disease - Continue metoprolol - Would recommend indefinitely holding anticoagulation, discussed with patient today. I spent a total of 46 minutes in the care of this patient today. This time was spent reviewing labs, vital signs, imaging, interviewing and examining the patient, and discussing plan of care with them and their other care providers. Patient with an acute illness that pose threat to bodily function. He was at risk for bowel resection. Coordination with general surgery today. Elected to assume primary. Review of tests as above. [id number]. Qualifiers: Atrial fibrillation type: persistent (not longstanding) Qualified Code(s): I48.19 - Other persistent atrial fibrillation
[2025-07-03] MEDS: oxyCODONE 5 MG TABLET PO PRN (14:05)
[2025-07-04 05:33] LABS: HCT - HEMATOCRIT 34.9 % (42.0-52.0); HGB - HEMOGLOBIN 11.6 g/dL (14.0-18.0); MEAN PLATELET VOLUME 9.5 fL (7.4-11.4); NRBC ABSOLUTE COUNT (AUTO) 0.00 x10^3/uL; NUCLEATED RED BLOOD CELLS AUTO 0.0 /100WBC; PLT - PLATELET COUNT 143 10^3/uL (130-450); RED CELL DISTRIBUTION WIDTH 13.8 % (12.0-15.0)
[2025-07-04 05:52] LABS: ALT ALANINE AMINOTRANSFERASE 14.0 IU/L (10-60); AST ASPARTATE AMINOTRANSFERASE 22.0 IU/L (10-42); BUN - BLOOD UREA NITROGEN 21.0 mg/dL (6-20); CARBON DIOXIDE - CO2 28.0 mmol/L (21-32); CREATININE 1.0 mg/dL (0.6-1.3); GFR - MDRD 76.0 (>89)
[2025-07-04] MEDS: PANTOPRAZOLE 40 MG TABLET PO SCH (07:06)
--- NOTE | 2025-07-04 07:15 | Discharge Summary ---
Discharge Summary Admit Date: 06/30/25 Discharge Date: 07/04/25 Discharging Provider: Tremaine Hobson Primary Care Provider: Shereen Armendariz Code Status: Attempt Resuscitation Discharge Facility Name: Home DIAGNOSES Discharge Diagnoses with Status of Each Condition: ## Incarcerated hernia, s/p repair Recall that he had a incarcerated hernia on presentation. S/p ex lap with general surgery on 06/30. Did not need any bowel resection. He has had returned of bowel function. Ileus resolved. Having bowel movements. No nausea. Tolerated regular diet. His pain was controlled with intermittent as needed narcotics. He used 5 mg oxycodone x 2 on day prior to discharge. - Continue scheduled Tylenol 500 mg 3 times daily, this is safe in his cirrhosis - Avoid NSAIDs in the setting of cirrhosis - Continue abdominal binder per general surgery for comfort - Sending with oxycodone 5 mg #20 to be used every 6 hours as needed for pain - Follow-up with general surgery - His sister is requesting referral to a hernia center at [facility], I asked her to defer this to his follow-up appointment. o This is for his inguinal hernia that apparently is persistent. ## Alcoholic cirrhosis of liver with ascites, stable MELD 23, Child Talley class C as of 07/02 - similar throughout this hospitalization. Longstanding history of alcohol-related cirrhosis. Originally diagnosed around 2022. Follows with palliative care. He has attempted to get in with hepatology previously but has been unsuccessful. Quit drinking around the time of his diagnosis. Denies any significant ascites since his diagnosis. Remains vigilant on his diuretic regimen. No history of esophageal varices. No history of HE. - Continue furosemide 40 mg, Aldactone 100 mg - Recommend he follows up with hepatology, would benefit from liver transplant. ## Acute hypoxemic respiratory failure, Resolved Following surgery. He was on 1 to 2 L of O2 for a couple of days. Think this was largely fluid driven. Resolved with reinitiation of his home diuretics. - Continue pulmonary toileting until ambulating readily - Continue diuretics as above ## Longstanding persistent atrial fibrillation Stable. 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 Rates were elevated after surgery in the setting of holding his beta-polo. [id number] = 0. No history of CHF, vascular disease, diabetes, HTN or prior stroke. HASBLED =1 for hx fo liver disease - Continue home metoprolol - Would recommend indefinitely holding anticoagulation, this was discussed with patient and he is in agreement. Follow-up with cardiology to definitively determine whether he should resume anticoagulation HPI History of Present Illness: 64 yo M with history of umbilical hernia, cirrhosis, pancytopenia and chronic kidney disease who states that 2 days ago his umbilical hernia "popped out" and he has not been able to push it back again since yesterday. He also endorses nausea, vomiting and obstipation. States he has an inguinal hernia as well but it is not stuck. Denies fevers, chills, dysuria, headaches and is currently a palliative care patient. During my discussion with the patient and his sister they state that he has been seen by surgeons in the past and told he was too high risk to undergo surgery due to his pancytopenia and liver disease. Due to this they request transfer to for management of this acute hernia incarceration. CONSULTS | PROCEDURES Consultations: Comanaged with general surgery Procedures: Exploratory laparotomy and hernia repair with mesh HOSPITAL COURSE Hospital Course: Patient presented with 48 hours of nonreducible hernia. Pain associated. He had a relatively uneventful surgery. No bowel resection was needed. He was admitted for monitoring given his medical complexity and awaiting return of bowel function. He had ileus for approximately 2 days. He began having bowel tones, and passed a hard stool on 07/02. He was cautiously advanced to clears and tolerated this well. Full diet was advanced on 07/03 with consideration for discharge on that day. He was tolerating oral diet and off fluids. Unfortunately was still receiving IV narcotics only. He was transition to oral narcotics and tolerated this transition well. Patient was seen and evaluated on the day of discharge. He is clinically stable. He feels well. He will follow-up with general surgery in the next 1 to 2 weeks. They have his contact information and will reach out. Alternatively, the patient has the general surgery office number in their discharge packet. Of note, the patient was initially on anticoagulation on arrival. He does seem to have a [id number] score of 0. On top of that he has increased risk of bleeding given his cirrhosis and thrombocytopenia. I do not think that anticoagulation is in his best interest. After extensive conversation with the patient we agreed to hold it at discharge. He will follow-up with his playground director for definitive decision. ALLERGIES Allergies Allergy/AdvReac Type Severity Reaction Status Date / Time No Known Drug Allergies Allergy Verified 06/30/25 11:52 MEDICATIONS Ambulatory Orders Medication Instructions Recorded Confirmed nitroglycerin 0.4 mg sublingual 0.4 mg sublingual Q5M PRN chest 07/23/24 07/01/25 tablet pain #30 tabs docusate sodium 250 mg capsule 250 mg PO DAILY PRN con stipation 01/24/25 07/01/25 furosemide 40 mg tablet 40 mg PO QAM #90 tabs 07/01/25 metoprolol succinate 25 mg 25 mg PO BID 04/01/2507/01 tablet,extended release 24 hr pantoprazole 20 mg tablet,delayed 20 mg PO DAILY 04/0107/01/25 release spironolactone 100 mg tablet 100 mg PO QAM 04/01/25 oxycodone 5 mg tablet 2.5 - 5 mg (0.5 - 1 x 5 mg) PO BID 06/12/25 07/01/25 PRN severe pain #60 tabs multivitamin (Daily Multi-Vitamin 1 tab PO DAILY 07/0107/01/25 tablet) acetaminophen 500 mg tablet 500 mg PO TID #0 tabs 06/08 03/31 (Tylenol Extra Strength) oxycodone 5 mg tablet 5 mg PO Q6H PRN Moderate Mp n 07/04/25 (Level 4-6) #20 tabs PHYSICAL EXAM AT DISCHARGE Vital Signs: Vital Signs x48h Temp Pulse Resp BP Pulse Ox 07/04/25 11:45 36.3 C L 96 16 109/77 93 LABS 07/04/25 05:24 07/04/25 05:24 DIAGNOSTIC IMAGING Diagnostic Imaging Results Comments: Abdomen/pelvis CT 06/30 1. Small bowel obstruction secondary to a periumbilical bowel and fat- containing hernia. Small volume free fluid within the hernia sac is concerning for strangulation. Recommend surgical consultation. 2. Cirrhotic liver morphology with sequela of portal hypertension including paraesophageal varices. 3. Right moderate and left small pleural effusions. 4. Cholelithiasis with gallbladder wall thickening, recommend correlation with biliary studies as gallbladder wall thickening is nonspecific and may be secondary to third spacing versus possible cholecystitis. Abdomen x-ray 07/02 Distended loops of small and large bowel, likely ileus. Chest x-ray 07/01 Moderate right and small left pleural effusions. Findings are unchanged from prior. FOLLOW UP Follow Up: Follow-up with general surgery in 1 week Follow-up with PCP in 2 weeks Follow-up with cardiology within the next 1 month Recommend aggressive efforts to get him in with hepatology TIME SPENT Time Spent in Discharge (Minutes): 50 Discharge Plan Discharge Patient Disposition: Home, Self Care Condition: Stable Medically Cleared Date:: 07/04/25 Prescriptions: New acetaminophen [Tylenol Extra Strength] 500 mg Tablet 500 mg PO TID Qty: 0 0RF oxycodone 5 mg Tablet 5 mg PO Q6H PRN (Reason: Moderate Pain (Level 4-6)) Qty: 20 0RF Continued oxycodone 5 mg tablet 2.5 - 5 mg PO BID PRN (Reason: severe pain) Qty: 60 0RF nitroglycerin 0.4 mg tablet, sublingual 0.4 mg sublingual Q5M PRN (Reason: chest pain) Qty: 30 0RF Rx Instructions: do not exceed 3 doses per episode multivitamin [Daily Multi-Vitamin] Tablet 1 tab PO DAILY metoprolol succinate 25 mg tablet extended release 24 hr 25 mg PO BID spironolactone 100 mg tablet 100 mg PO QAM pantoprazole 20 mg tablet,delayed release (DR/EC) 20 mg PO DAILY docusate sodium 250 mg capsule 250 mg PO DAILY PRN (Reason: constipation) furosemide 40 mg tablet 40 mg PO QAM Qty: 90 3RF Discontinued apixaban 5 mg tablet 5 mg PO BID Activity Restrictions: Additional Comments Activity Restrictions/Additional Instructions: You were admitted for an incarcerated hernia which was surgically repaired. You are recovering well from your surgery. You had some delay of return of your bowel function but you are now eating and drinking well, passing gas, and having normal bowel movements. Your pain is controlled with oral medications. As we discussed, you likely do not need to be on anticoagulation and in fact I would not recommend you be on anticoagulation moving forward. I have recommended discontinuing eliquis (apixaban) until you follow up with your heart doctor. DIET - You may resume your normal diet if there is no nausea or vomiting. You may want to avoid spicy, greasy, or heavy foods today to minimize gas. - If nausea or vomiting occurs, don't eat or drink anything for one hour. Then start drinking small amounts of clear liquids. Later, add crackers, gradually building up to your usual diet. ACTIVITY INSTRUCTIONS * Ambulate daily * May climb stairs * No lifting, pushing, or pulling more than 20 lbs for 6 weeks. Wear abdominal binder when out of bed. DRESSING CARE * May shower and gently wash incisions with soap and water * Do not immerse incisions in bath. * No swimming ADDITIONAL DISCHARGE INSTRUCTIONS Apply ice to the incisions as often as tolerated for at least 72 hours, 15 min on, 20 min off. This will help with pain and bruising and swelling. FOLLOW UP Follow up with Dr. London in two weeks. Please call office if you have not received a call by Monday AM. [phone] MEDICATIONS * It's okay for you to take 1 extra strenght (500mg) tylenol 3 times daily and I would recommend you do so regularly for the next week as your pain improves. * Use oxycodone as needed for pain not controlled with Tylenol; may take both meds together. * Use stool softener daily while taking narcotic pain meds. ANESTHESIA PRECAUTIONS Anesthesia and medications given during surgery remain in your body up to 24 hours. This may slow reaction time and/or decrease coordination. FOR THE NEXT 24 HOURS: - Have a responsible person with you - Avoid any activity that requires you to be alert and coordinated - DO NOT DRIVE a motor vehicle for 24 hours or as long as you are taking opioid pain medication - Do not drink alcoholic beverages - Do not smoke unattended Patient Date Escort Date RN Date Diet: Regular Print Language: Czech Patient Instructions: Surg Dc Follow-up Care: Shereen Armendariz NP [Primary Care Provider, Family Practice] Patrice London MD [Provider Admit Priv/Credential, Surgery, General] - 2 Weeks Vitals documented within 30 minutes of discharge?: Yes
[2025-07-04 12:22] VITALS: BP 109/77; TEMP 97.3; O2SAT 93
== END 2025-07-04 11:45 | disposition home or self-care (01) | DRG 353 ==
LOC: ED 11:31 → SDS 18:32 → MS2 19:02
PROVIDERS: ADMIT Student in an Organized Health Care Education/Training Program; ATTEND Student in an Organized Health Care Education/Training Program